=== PATIENT | female | born 1970 | race Caucasian/White ===

== ENCOUNTER 2017-01-26 21:34 | Inpatient (IN) | payer SELFPAY ==
[2017-01-26] VITALS (10 sets, daily range): BP systolic 106–159; BP diastolic 69–112; PULSE 88–114; RESP 8–14; TEMP 98.1; O2SAT 100
[2017-01-26] MEDS ORDERED: SODIUM CHLOR 0.9% 1000 ML INJ 1,000 ML IV ONE ×2 (21:42→22:00)
[2017-01-26] MEDS ORDERED: ETOMIDATE 20 MG/10 ML VIAL ONE (21:43)
[2017-01-26] MEDS ORDERED: SUCCINYLCHOLINE CHLORIDE 200 MG/10 ML VIAL ONE (21:44)
[2017-01-26] MEDS ORDERED: SUCCINYLCHOLINE CHLORIDE 200 MG/10 ML VIAL IV PUSH ONE (21:45)
[2017-01-26] MEDS ORDERED: SODIUM CHLORIDE 0.9% FLUSH 10 ML FLUSH IVF PRN (21:45)
[2017-01-26] MEDS ORDERED: ETOMIDATE 20 MG/10 ML VIAL IV PUSH ONE (21:45)
--- NOTE | 2017-01-26 22:02 | PD ---
HPI Chief Complaint: intentional overdose Time Seen by Provider: 21:36 Travel History International Travel<30 days: No (unable to obtain) Contact w/Intl Traveler<30days: No (unable to obtain) Traveled to known affect area: No (unable to obtain) History of Present Illness HPI The patient is a 46-year-old female who presents emergency department via EMS after an overdose. The patient apparently called her and stated that she was going to go and live with her stepmother who approximate 6 months ago. The called the police and when they arrived they obtained an entrance, EMS arrived and noted that the patient was found somewhat lethargic, obtunded, would arouse only to painful stimuli. EMS found an empty Flexeril bottle that was filled in November, had 180 tablets, 10 mg dose. The stated that there are quite a few pills left in the bottle, EMS is unsure of how many pills the patient took, however, apparently took the medications at approximately 9 PM. Upon arrival the patient responds minimally to painful stimuli and is unable to provide any further information. [facility] Past Medical History Medical History: Unable to Obtain Past Surgical History Surgical History: Unable to Obtain Family History Narrative Family History Unable to obtain Social History Tobacco Use: No (unable to obtain) Allergies-Medications (Allergen,Severity, Reaction): Coded Allergies: UNOBTAINABLE (Unverified , 01/26/17) AMS Review of Systems ROS Limitations: Clinical Condition, Altered Mental Status Except as stated in HPI: all other systems reviewed are Neg Physical Exam Exam Limitations: Clinical Condition, Altered Mental Status Narrative GENERAL: 46-year-old female who appears her stated age, minimally arouses to pain, and is nonverbal. SKIN: Focused skin assessment warm/dry. HEAD: Atraumatic. Normocephalic. EYES: Pupils equal and round. 2 mm bilateral and reactive. ENT: No nasal bleeding or discharge. Upper dentures in place. NECK: Trachea midline. No JVD. CARDIOVASCULAR: Regular rate and rhythm. No murmur appreciated. Heart rate in the 90s. RESPIRATORY: No accessory muscle use. Clear to auscultation. Breath sounds equal bilaterally. GASTROINTESTINAL: Abdomen soft, non-tender, nondistended. No rebound tenderness. MUSCULOSKELETAL: No obvious deformities. No clubbing. No cyanosis. No edema. Back: Tattoos noted, no evidence of trauma. NEUROLOGICAL: Responds minimally to painful stimuli. Nonverbal. PSYCHIATRIC: Unable to obtain. Data Data Last Documented VS Vital Signs Date Time Temp Pulse Resp B/P Pulse Ox O2 Delivery O2 Flow Rate FiO2 01/26/17 23:31 102 14 155/98 100 Ventilator 35 01/26/17 22:31 98.1 2 Orders Etomidate Inj (Amidate Inj) (01/26/17 21:43) Succinylcholine Inj (Quelicin Inj) (01/26/17 21:44) Electrocardiogram (01/26/17 21:42) Complete Blood Count With Diff (01/26/17 21:42) Comprehensive Metabolic Panel (01/26/17 21:42) Prothrombin Time / Inr (Pt) (01/26/17 21:42) Act Partial Throm Time (Ptt) (01/26/17 21:42) Osmolality,Serum (01/26/17 21:42) Urinalysis - C+S If Indicated (01/26/17 21:42) Chest, Single Ap (01/26/17 21:42) Ct Brain W/O Iv Contrast(Rout) (01/26/17 21:42) Arterial Blood Gas (Abg) (01/26/17 21:42) Iv Access Insert/Monitor (01/26/17 21:42) Ecg Monitoring (01/26/17 21:42) Oximetry (01/26/17 21:42) Jose-Gastric Tube Insert/Mon (01/26/17 21:42) Urinary Catheter Insert/Apply (01/26/17 21:42) Sodium Chloride 0.9% Flush (Ns Flush) (01/26/17 21:45) Sodium Chlor 0.9% 1000 Ml Inj (Ns 1000 M (01/26/17 21:42) Call Poison Control (01/26/17 21:42) Drug Screen, Random Urine (01/26/17 21:42) Alcohol (Ethanol) (01/26/17 21:42) Salicylates (Aspirin) (01/26/17 21:42) Tylenol (Acetaminophen) (01/26/17 21:42) Etomidate Inj (Amidate Inj) (01/26/17 21:45) Succinylcholine Inj (Quelicin Inj) (01/26/17 21:45) Ed Urine Pregnancytest Poc (01/26/17 21:42) Magnesium (Mg) (01/26/17 21:42) Propofol 1000 Mg/100 Ml Inj (Diprivan 10 (01/26/17 22:00) ^ Infusion (01/26/17 21:55) RASS (01/26/17 21:55) Neurological Rass Scale AUNDREA.Q2H (01/26/17 21:55) Sodium Chlor 0.9% 1000 Ml Inj (Ns 1000 M (01/26/17 22:00) Resp Ventilation- Volume (01/26/17 ) Admit Order (Ed Use Only) (01/27/17 00:00) Labs Laboratory Tests Test 01/26/17 22:20 Prothrombin Time 10.8 SEC Prothromb Time International 1.0 RATIO Ratio Activated Partial 23.3 SEC Thromboplast Time Urine Color YELLOW Urine Turbidity CLEAR Urine pH 6.0 Urine Specific [place]ole 1.007 Urine Protein NEG mg/dL Urine Glucose (UA) NEG mg/dL Urine Ketones NEG mg/dL Urine Occult Blood NEG Urine Nitrite NEG Urine Bilirubin NEG Urine Urobilinogen LESS THAN 2.0 MG/DL Urine Leukocyte Esterase NEG Urine RBC 1 /hpf Urine WBC 1 /hpf Urine Squamous Epithelial 1 /hpf Cells Microscopic Urinalysis Comment CULT NOT INDICATED Blood Gas Puncture Site RT FEMORAL Blood Gas Patient Temperature 98.6 Blood Gas HCO3 24 mmol/L Blood Gas Base Excess 1.1 mmol/L Blood Gas Oxygen Saturation 91 % Arterial Blood pH 7.50 Arterial Blood Partial 32 mmHg Pressure CO2 Arterial Blood Partial 263 mmHG Pressure O2 Arterial Blood Oxygen Content 15.5 Vol % Arterial Blood 8.1 % Carboxyhemoglobin Arterial Blood Methemoglobin 0.8 % Blood Gas Hemoglobin 11.6 G/DL Oxygen Delivery Device VENTILATOR Blood Gas Ventilator Setting AC14/500 5 PEEP Blood Gas Inspired Oxygen 50 % Sodium Level 141 MEQ/L Potassium Level 3.6 MEQ/L Chloride Level 105 MEQ/L Carbon Dioxide Level 26.9 MEQ/L Anion Gap 9 MEQ/L Blood Urea Nitrogen 8 MG/DL Creatinine 0.63 MG/DL Estimat Glomerular Filtration 102 ML/MIN Rate Random Glucose 68 MG/DL Calcium Level 7.9 MG/DL Magnesium Level 2.1 MG/DL Total Bilirubin 0.3 MG/DL Aspartate Amino Transf 46 U/L (AST/SGOT) Alanine Aminotransferase 31 U/L (ALT/SGPT) Alkaline Phosphatase 70 U/L Total Protein 6.5 GM/DL Albumin 2.8 GM/DL Salicylates Level 5.3 MG/DL Urine Opiates Screen NEG Acetaminophen Level LESS THAN 2.0 MCG/ML Urine Barbiturates Screen NEG Urine Amphetamines Screen POS Urine Benzodiazepines Screen NEG Urine Cocaine Screen NEG Urine Cannabinoids Screen POS Ethyl Alcohol Level 130 MG/DL MDM Medical Decision Making Medical Screen Exam Complete: Yes Emergency Medical Condition: Yes Medical Record Reviewed: Yes Interpretation(s) EKG reveals sinus tachycardia with a heart rate of 102. No significant ST-T wave changes noted. Differential Diagnosis Differential diagnosis includes intentional overdose, Flexeril ingestion, electrolyte abnormality, aspiration, intracranial hemorrhage, suicidal ideation. Narrative Course IV was established, labs are drawn and sent, and the patient was placed on cardiac telemetry monitoring and continuous pulse oximetry monitoring. The patient was minimally responsive to painful stimuli, was not protecting airway, had no gag reflex. Therefore, the patient was intubated using rapid sequence intubation with etomidate and succinylcholine. Poison control was contacted immediately. Orogastric tube and Mayfield catheter were placed. CT the brain was obtained and post intubation chest x-ray was obtained. The patient was administered IV fluids. Patient was placed on propofol drip for sedation. CT the brain is negative. Tox screen is positive for amphetamines and cannabinoids. Alcohol is elevated at 130. Salicylate level was 5.4. The patient's name on the record is not her identity, the police were notified. The patient will be admitted to the intensive care unit as she is sedated and intubated. Critical Care Narrative Aggregate critical care time was 45 minutes. Time to perform other separately billable procedures was not included in the critical care time. My time did not include minutes spent treating any other patients simultaneously or on activities that did not directly contribute to the patient's treatment. The services I provided to this patient were to treat and/or prevent clinically significant deterioration that could result in: Anoxia, hypoxia, aspiration, arrhythmia, . I provided critical care services requiring my management, as noted below: Chart data review, documentation time, medication orders and management, vital sign assessments/reviewing monitor data, ordering and reviewing lab tests, ordering and interpreting/reviewing x-rays and diagnostic studies, care of the patient and discussion of the patient with the admitting physicians. Procedures Procedure Narrative INTUBATION: The patient was put in optimal position for the procedure. Rapid sequence intubation was initiated by me using 20 milligrams of etomidate IV and 100 milligrams of succinylcholine IV. The patient was intubated with a 7.05cuffed endotracheal tube. Tube placement was confirmed by visualization of the tube and balloon passing through the cords, capnometry and subsequent chest x-ray. Breath sounds were equal and well aerated bilaterally postintubation. No breath sounds over stomach. Patient tolerated procedure well. Physician Communication Physician Communication The on-call trim carpenter was paged for admission. I discussed the patient with Dr. Stephens who agrees with admission. Diagnosis Primary Impression: Intentional overdose of drug in tablet form Additional Impressions: Alcohol intoxication Qualified Code: F10.920 - Alcohol intoxication, uncomplicated Polysubstance abuse Admitting Information Admitting Physician Requests: Admit Condition: Serious Roman Lemos MD January 26, 2017 22:02
--- NOTE | 2017-01-26 22:23 | RADRPT ---
EXAM DATE/TIME: 01/26/2017 22:03 [facility] COMPARISON: No previous studies available for comparison. INDICATIONS : Post procedure. MEDICAL HISTORY : None. SURGICAL HISTORY : None. ENCOUNTER: Initial ACUITY: 1 day PAIN SCORE: 0/10 LOCATION: Bilateral chest FINDINGS: An endotracheal tube has its tip 2 cm above the sedrick in good position. A nasogastric tube has its tip below the diaphragm. The heart and mediastinal structures are normal. The pulmonary vascular pa ttern is also normal. The lungs are clear. CONCLUSION: 1. No acute cardiopulmonary disease. 2. Endotracheal tube and nasogastric tube are in good positions. Toribio Hankins MD on January 26, 2017 at 22:17 Board Certified Radiologist. This report was verified electronically.
[2017-01-26 22:35] LABS: BLOOD GAS BASE EXCESS 1.1 mmol/L (-2-2); BLOOD GAS CARBOXYHEMOGLOBIN 8.1 % (0-4); BLOOD GAS HCO3 24 mmol/L (22-26); BLOOD GAS METHEMOGLOBIN 0.8 % (0-2); BLOOD GAS O2 HGB SATURATION 91 % (90-100); BLOOD GAS OXYGEN CONTENT 15.5 Vol % (12.0-20.0); BLOOD GAS PCO2 32 mmHg (38-42); BLOOD GAS PO2 263 mmHG (61-120); BLOOD GAS TOTAL HGB 11.6 G/DL (12.0-16.0); TEMP CORR TO 98.6
[2017-01-26 22:36] LABS: CRITICAL VALUE YES; DRAW SITE RT FEMORAL; FIO2 50 %; NUMBER OF ARTERIAL PUNCTURES 1; OXYGEN DEVICE VENTILATOR; STAT YES; VENT SETTINGS AC14/500 5 PEEP
[2017-01-26] MEDS: PROPOFOL 1000 MG/100 ML INJ 100 ML IV SCH ×2 (22:46→22:51)
[2017-01-26 22:56] LABS: BLOOD, URINE NEG (NEG); COMMENT (UR) CULT NOT INDICATED; CULTURE IF INDICATED CULT NOT INDICATED; GLUCOSE,URINE NEG (NEG); KETONE, URINE NEG (NEG); NITRITE,URINE NEG (NEG); SQUAMOUS EPITHELIAL CELL URINE 1 /hpf (0-5); URINE COLOR YELLOW (YELLW/STRAW)
[2017-01-26 23:00] LABS: AMPHETAMINE, URINE POS (NEG); BARBITURATES, URINE NEG (NEG); COCAINE, URINE NEG (NEG)
[2017-01-26 23:11] LABS: APTT (PATIENT) 23.3 SEC (24.3-30.1); PROTHROMBIN TIME - PATIENT 10.8 SEC (9.8-11.6)
[2017-01-26 23:19] LABS: ACETAMINOPHEN LESS THAN 2.0 MCG/ML (10.0-30.0); ALKALINE PHOSPHATASE 70 U/L (45-117); ALT (GPT) 31 U/L (10-53); ANION GAP 9 MEQ/L (5-15); AST (GOT) 46 U/L (15-37); BICARBONATE 26.9 MEQ/L (21.0-32.0); BLOOD UREA NITROGEN 8 MG/DL (7-18); CHLORIDE 105 MEQ/L (98-107); GLOMERULAR FILTRATION RATE 102 ML/MIN (>89); MAGNESIUM 2.1 MG/DL (1.5-2.5); POTASSIUM 3.6 MEQ/L (3.5-5.1); SODIUM (NA) 141 MEQ/L (136-145); TOTAL BILIRUBIN ADULT 0.3 MG/DL (0.2-1.0)
--- NOTE | 2017-01-26 23:59 | RADRPT ---
EXAM DATE/TIME: 01/26/2017 23:30 [facility] COMPARISON: No previous studies available for comparison. INDICATIONS : Altered mental status. Possible overdose. RADIATION DOSE: 56.35 CTDIvol (mGy) MEDICAL HISTORY : Non-responsive. SURGICAL HISTORY : Non-responsive. ENCOUNTER: Initial ACUITY: 1 day PAIN SCALE: Non-responsive LOCATION: cranial TECHNIQUE: Multiple contiguous axial images were obtained of the head. Using automated exposure control and adj ustment of the mA and/or kV according to patient size, radiation dose was kept as low as reasonably a chievable to obtain optimal diagnostic quality images. FINDINGS: CEREBRUM: The ventricles are normal for age. No evidence of midline shift, mass lesion, hemorrhage or acute in farction. No extra-axial fluid collections are seen. POSTERIOR FOSSA: The cerebellum and brainstem are intact. The 4th ventricle is midline. The cerebellopontine angle i s unremarkable. EXTRACRANIAL: The visualized portion of the orbits is intact. SKULL: The calvaria is intact. No evidence of skull fracture. CONCLUSION: Normal examination. Gerry Finley MD on January 26, 2017 at 23:57 Board Certified Radiologist. This report was verified electronically.
[2017-01-27] VITALS (25 sets, daily range): BP systolic 101–128; BP diastolic 64–96; PULSE 78–100; RESP 13–18; TEMP 96.6–99.9; O2SAT 100
--- NOTE | 2017-01-27 00:16 | HHI.HP ---
HPI Service Critical Care Medicine Primary Care Physician Unknown Admission Diagnosis intentional Flexeril overdose, alcohol intoxication, polysubstance a Diagnosis: Travel History International Travel<30 Days: No (unable to obtain) Contact w/Intl Traveler <30 Da: No (unable to obtain) Traveled to Known Affected Are: No (unable to obtain) History of Present Illness Patient is unable to provide medical history as she is intubated. History obtained largely from discussion with ED physician, Dr. Lemos. 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 46 her old female who presented to [facility] emergency department via E [facility] as an overdose with Flexeril. When [facility] arrived she was obtunded and would only arouse to noxious stimuli. There was an empty bottle of Flexeril 10 mg tabs which was filled in November with 180 mg tabs. Her stated that there were a lot of pills left in the bottle but the exact amount of her ingestion is unclear. It is estimated that she took the medications at around 9 PM on 01/26. Patient was intubated upon arrival to the emergency Department for airway protection. CT brain is negative. Urine drug screen is positive for amphetamines and cannabinoids. Alcohol level is 130. Past Family Social History Allergies: Coded Allergies: UNOBTAINABLE (Unverified , 01/26/17) AMS Past Medical History Unable to obtain from patient due to clinical condition. Past Surgical History Unable to obtain from patient due to clinical condition. Reported Medications Unable to obtain from patient due to clinical condition. Family History Unable to obtain from patient due to clinical condition. Social History Unable to him from patient due to clinical condition however she smells like cigarette smoke. EtOH level is 130. Physical Exam Vital Signs Vital Signs Date Time Temp Pulse Resp B/P Pulse Ox O2 Delivery O2 Flow Rate FiO2 01/27/17 00:00 100 14 119/82 100 Ventilator 35 01/26/17 23:40 100 01/26/17 23:31 102 14 155/98 100 Ventilator 35 01/26/17 22:53 88 14 106/69 Auto-Vent 01/26/17 22:42 103 14 137/92 Auto-Vent 01/26/17 22:35 100 35 01/26/17 22:31 Nasal Cannula 01/26/17 22:31 98.1 104 8 159/112 Nasal Cannula 2 01/26/17 22:08 114 14 132/97 Auto-Vent 01/26/17 21:55 100 50 01/26/17 21:35 104 8 159/112 Non-Rebreather Physical Exam Drips: Propofol 30 g per KG per minute. Placed on hold for evaluation. GENERAL: Thin well-developed female who is orotracheally intubated and sedated. SKIN: Warm and dry. HEAD: Atraumatic. Normocephalic. EYES: Pupils equal and round, 3 mm reactive bilaterally.. No scleral icterus. No injection or drainage. ENT: No nasal bleeding or discharge. Mucous membranes pink and moist. NECK: Trachea midline. No JVD. No meningismus CARDIOVASCULAR: Regular rate and rhythm. No murmurs rubs or gallops. RESPIRATORY: No accessory muscle use. Clear to auscultation. Breath sounds equal bilaterally. GASTROINTESTINAL: Abdomen soft, non-tender, nondistended. Bowel sounds present. : Mayfield in place with light yellow urine output. MUSCULOSKELETAL: Extremities without clubbing, cyanosis, or edema. No obvious deformities. NEUROLOGICAL: No eye opening to deep noxious stimuli. Localizes with bilateral upper extremities. Withdraws bilateral lowers. Does not follow commands. No clonus Laboratory Laboratory Tests Test 01/26/17 22:20 Prothrombin Time 10.8 Prothromb Time International 1.0 Ratio Activated Partial 23.3 Thromboplast Time Urine Color YELLOW Urine Turbidity CLEAR Urine pH 6.0 Urine Specific Joice 1.007 Urine Protein NEG Urine Glucose (UA) NEG Urine Ketones NEG Urine Occult Blood NEG Urine Nitrite NEG Urine Bilirubin NEG Urine Urobilinogen LESS THAN 2.0 Urine Leukocyte Esterase NEG Urine RBC 1 Urine WBC 1 Urine Squamous Epithelial 1 Cells Microscopic Urinalysis Comment CULT NOT INDICATED Blood Gas Puncture Site RT FEMORAL Blood Gas Patient Temperature 98.6 Blood Gas HCO3 24 Blood Gas Base Excess 1.1 Blood Gas Oxygen Saturation 91 Arterial Blood pH 7.50 Arterial Blood Partial 32 Pressure CO2 Arterial Blood Partial 263 Pressure O2 Arterial Blood Oxygen Content 15.5 Arterial Blood 8.1 Carboxyhemoglobin Arterial Blood Methemoglobin 0.8 Blood Gas Hemoglobin 11.6 Oxygen Delivery Device VENTILATOR Blood Gas Ventilator Setting AC14/500 5 PEEP Blood Gas Inspired Oxygen 50 Sodium Level 141 Potassium Level 3.6 Chloride Level 105 Carbon Dioxide Level 26.9 Anion Gap 9 Blood Urea Nitrogen 8 Creatinine 0.63 Estimat Glomerular Filtration 102 Rate Random Glucose 68 Calcium Level 7.9 Magnesium Level 2.1 Total Bilirubin 0.3 Aspartate Amino Transf 46 (AST/SGOT) Alanine Aminotransferase 31 (ALT/SGPT) Alkaline Phosphatase 70 Total Protein 6.5 Albumin 2.8 Salicylates Level 5.3 Urine Opiates Screen NEG Acetaminophen Level LESS THAN 2.0 Urine Barbiturates Screen NEG Urine Amphetamines Screen POS Urine Benzodiazepines Screen NEG Urine Cocaine Screen NEG Urine Cannabinoids Screen POS Ethyl Alcohol Level 130 Result Diagram: 01/26/170 Assessment and Plan Assessment and Plan NEURO: Polysubstance abuse - Amphetamine and cannabinoid abuse - Acute alcohol intoxication - Acute Flexeril overdose CT brain -01/26 Urine drug screen positive for amphetamines and cannabinoids Alcohol level 130 Acetaminophen and salicylate negative. Propofol for sedation. Target RASS -2. Daily sedation vacation. RESP: Acute respiratory failure tobacco abuse Intubated in ED for airway protection Chest x-raysatisfactory endotracheal tube position. Lungs clear DuoNeb every 6 hours. Albuterol every 2 hours as needed. Daily sedation vacation and SBT with extubation when mental status appropriate. CV: Monitor hemodynamic GI: Moderate chronic protein energy malnutrition OG tube to low intermittent wall suction. Initiate enteral feeds if unable to extubate in a.m. Bowel regimen per protocol FEN/RENAL: Mayfield in place. D5 0.4 NaCl 20 KCl per liter at 125 L per hour ID: Chest x-ray and UA negative. Monitor for signs and symptoms of infection HEME: Leukopenia Erythrocyte macrocytosis May be secondary to chronic alcohol use ENDO: Hypoglycemia Fluids with D5 as per above. Monitor bedside glucose every 4 hours. PROPH: SCDs/Lovenox 40 mg subcutaneous daily for DVT prophylaxis. Protonix 40 mg IV daily for stress ulcer prophylaxis. ACCESS: Peripheral IV providing adequate access at this time. Discussed with Dr. Lemos. Discussed with ED RN. Critical care time 55 minutes exclusive of separately billable procedures. Heidi Stephens MD January 27, 2017 00:16
[2017-01-27 00:23] LABS: AUTOMATED NEUTROPHIL # 1.8 TH/MM3 (1.8-7.7); BASOPHIL % 0.6 % (0.0-2.0); EOSINOPHIL # 0.1 TH/MM3 (0-0.4); EOSINOPHIL % 2.3 % (0.0-4.0); HEMATOCRIT 34.7 % (35.0-46.0); HEMO FLAGS DIFF FINAL; LYMPH % 35.3 % (9.0-44.0); LYMPHOCYTE # 1.2 TH/MM3 (1.0-4.8); MEAN CELL VOLUME 113.1 FL (80.0-100.0); MEAN CORPUSCULAR HEMOGLOBIN 37.8 PG (27.0-34.0); MEAN CORPUSCULAR HGB CONC 33.4 % (32.0-36.0); MONO % 8.6 % (0.0-8.0); NEUT % 53.2 % (16.0-70.0); PLATELET COUNT 169 TH/MM3 (150-450); RED BLOOD COUNT 3.07 MIL/MM3 (4.00-5.30); RED CELL DISTRIBUTION WIDTH 16.1 % (11.6-17.2); WHITE BLOOD COUNT 3.4 TH/MM3 (4.0-11.0)
[2017-01-27] MEDS ORDERED: CHLORHEXIDINE GLUCONATE 2 % 1 PACK (2 CLOTHS) TOP PRN (00:30)
[2017-01-27] MEDS ORDERED: SODIUM CHLORIDE 0.9% FLUSH 10 ML FLUSH PRN (00:30)
[2017-01-27] MEDS ORDERED: LACTULOSE SYRUP 20 GM/30 ML CUP PO PRN (00:30)
[2017-01-27] MEDS ORDERED: PROPOFOL 1000 MG/100 ML INJ 100 ML IV SCH (00:30)
[2017-01-27] MEDS ORDERED: MISCELLANEOUS NURSING INFORMATION XX SCH (00:30)
[2017-01-27] MEDS ORDERED: ONDANSETRON HCL 4 MG/2 ML VIAL IV PRN (00:30)
[2017-01-27] MEDS ORDERED: RESP: ALBUTEROL 2.5 MG/3 ML NEB (PRN) INH (00:30)
[2017-01-27] MEDS ORDERED: MAGNESIUM HYDROXIDE SUSP 30 ML CUP PO PRN (00:30)
[2017-01-27] MEDS ORDERED: ACETAMINOPHEN 325 MG TAB PO PRN (00:30)
[2017-01-27] MEDS ORDERED: BISACODYL 10 MG SUPP RECTAL PRN (00:30)
[2017-01-27] MEDS ORDERED: SENNOSIDES 8.6 MG TAB PO PRN (00:30)
[2017-01-27] MEDS: D5-1/2 NS + KCL 20 MEQ INJ 1,000 ML IV SCH ×3 (01:03→18:40)
[2017-01-27 01:46] LABS: BLOOD GAS BASE EXCESS -1.2 mmol/L (-2-2); BLOOD GAS CARBOXYHEMOGLOBIN 3.6 % (0-4); BLOOD GAS HCO3 23 mmol/L (22-26); BLOOD GAS METHEMOGLOBIN 0.5 % (0-2); BLOOD GAS O2 HGB SATURATION 96 % (90-100); BLOOD GAS OXYGEN CONTENT 15.1 Vol % (12.0-20.0); BLOOD GAS PCO2 36 mmHg (38-42); BLOOD GAS PO2 173 mmHG (61-120); CRITICAL VALUE NO; OXYGEN DEVICE VENTILATOR; TEMP CORR TO 98.6
[2017-01-27 01:47] LABS: DRAW SITE RT FEMORAL; FIO2 35 %; NUMBER OF ARTERIAL PUNCTURES 1; VENT SETTINGS PRVC/AC
[2017-01-27 01:48] LABS: STAT NO
[2017-01-27] MEDS: RESP: ALBUTEROL 2.5 MG/IPRATROPIUM 0.5 MG NEB (SCH) INH ×4 (03:24→22:55)
[2017-01-27] MEDS: CHLORHEXIDINE GLUCONATE 2 % 1 PACK (2 CLOTHS) TOP SCH (03:42)
[2017-01-27] MEDS: ENOXAPARIN SODIUM 40 MG/0.4 ML SYRINGE SQ SCH (06:46)
[2017-01-27] MEDS: CHLORHEXIDINE 0.12% (ORAL KIT) 15 ML CUP MT SCH ×2 (08:00→20:00)
--- NOTE | 2017-01-27 08:21 | EKG ---
Date Performed: 01/26/2017 Time Performed: 22:13:37 PTAGE: 46 years EKG: SINUS TACHYCARDIA ABNORMAL RHYTHM ECG NO PREVIOUS TRACING DOCTOR: Rommel Chavez Interpretating Date/Time 01/27/2017 08:20:29
[2017-01-27] MEDS: DOCUSATE SODIUM 50 MG/SENNA 8.6 MG TAB PO SCH ×2 (09:00→20:17)
[2017-01-27] MEDS: PANTOPRAZOLE SODIUM 40 MG VIAL IV SCH (09:03)
[2017-01-27] MEDS: SODIUM CHLORIDE 0.9% FLUSH 10 ML FLUSH SCH ×2 (09:03→20:14)
[2017-01-27] MEDS: PROPOFOL 1000 MG/100 ML INJ 100 ML IV SCH (11:26)
[2017-01-28] VITALS (16 sets, daily range): BP systolic 110–140; BP diastolic 67–99; PULSE 84–103; RESP 19–26; TEMP 97.7–99; O2SAT 97–100
[2017-01-28] MEDS: CHLORHEXIDINE GLUCONATE 2 % 1 PACK (2 CLOTHS) TOP SCH
[2017-01-28] MEDS: D5-1/2 NS + KCL 20 MEQ INJ 1,000 ML IV SCH ×3 (01:58→20:06)
[2017-01-28] MEDS: RESP: ALBUTEROL 2.5 MG/IPRATROPIUM 0.5 MG NEB (SCH) INH ×4 (04:13→22:00)
[2017-01-28 04:38] LABS: AUTOMATED NEUTROPHIL # 6.2 TH/MM3 (1.8-7.7); BASOPHIL % 0.6 % (0.0-2.0); EOSINOPHIL % 0.5 % (0.0-4.0); HEMATOCRIT 34.6 % (35.0-46.0); HEMO FLAGS DIFF FINAL; LYMPH % 12.6 % (9.0-44.0); MEAN CELL VOLUME 114.2 FL (80.0-100.0); MEAN CORPUSCULAR HGB CONC 33.3 % (32.0-36.0); MONO % 5.9 % (0.0-8.0); NEUT % 80.4 % (16.0-70.0); PLATELET COUNT 142 TH/MM3 (150-450); RED BLOOD COUNT 3.03 MIL/MM3 (4.00-5.30); RED CELL DISTRIBUTION WIDTH 16.3 % (11.6-17.2); WHITE BLOOD COUNT 7.8 TH/MM3 (4.0-11.0)
[2017-01-28 04:47] LABS: BICARBONATE 25.5 MEQ/L (21.0-32.0); POTASSIUM 3.7 MEQ/L (3.5-5.1)
[2017-01-28] MEDS: PROPOFOL 1000 MG/100 ML INJ 100 ML IV SCH (05:26)
[2017-01-28] MEDS: ENOXAPARIN SODIUM 40 MG/0.4 ML SYRINGE SQ SCH (05:26)
--- NOTE | 2017-01-28 06:47 | HHI.CCPN ---
Subjective Remarks/Hospital Course Patient is unable to provide medical history as she is intubated. History obtained largely from discussion with ED physician, Dr. Lemos. 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 46 her old female who presented to [facility] emergency department via E [facility] as an overdose with Flexeril. When E VAC arrived she was obtunded and would only arouse to noxious stimuli. There was an empty bottle of Flexeril 10 mg tabs which was filled in November with 180 mg tabs. Her stated that there were a lot of pills left in the bottle but the exact amount of her ingestion is unclear. It is estimated that she took the medications at around 9 PM on 01/26. Patient was intubated upon arrival to the emergency Department for airway protection. CT brain is negative. Urine drug screen is positive for amphetamines and cannabinoids. Alcohol level is 130. 0530: Very agitated this morning. Will attempt to extubate bur may require a sedation protocol. Suicide precautions. Objective Vital Signs Date Time Temp Pulse Resp B/P Pulse Ox O2 Delivery O2 Flow Rate FiO2 01/28/17 06:34 100 Nasal Cannula 4 01/28/17 06:00 103 01/28/17 04:13 35 01/28/17 04:00 97.7 26 140/74 Intake and Output 01/27/17 01/27/17 01/28/17 08:00 16:00 00:00 Intake Total 2581 ml 1208 ml 856 ml Output Total 100 ml 450 ml 400 ml Balance 2481 ml 758 ml 456 ml Result Diagram: 01/28/17 0335 01/28/17 0335 Objective Remarks Drips: d/c Propofol 30 g per KG per minute. Placed on hold for evaluation. GENERAL: Thin female who is orotracheally intubated and sedated. SKIN: Warm and dry. HEAD: Atraumatic. Normocephalic. EYES: Pupils equal and round, 2 mm reactive bilaterally. NECK: Trachea midline. No meningismus CARDIOVASCULAR: Regular rate and rhythm. No murmurs rubs or gallops. No JVD. RESPIRATORY: Clear to auscultation. Breath sounds equal bilaterally. GASTROINTESTINAL: Abdomen soft, non-tender, nondistended. Bowel sounds present. MUSCULOSKELETAL: Extremities without clubbing, cyanosis, or edema. No obvious deformities. Well perfused. NEUROLOGICAL:Moves 4 limbs with 5/5 strength. Does not follow commands. A/P Assessment and Plan NEURO: Polysubstance abuse - Amphetamine and cannabinoid abuse - Acute alcohol intoxication - Acute Flexeril overdose CT brain -01/26 Urine drug screen positive for amphetamines and cannabinoids Alcohol level 130 Acetaminophen and salicylate negative. Propofol for sedation. Target RASS 0 Daily sedation vacation. RESP: Acute respiratory failure tobacco abuse Intubated in ED for airway protection Chest x-raysatisfactory endotracheal tube position. Lungs clear DuoNeb every 6 hours. Albuterol every 2 hours as needed. Daily sedation vacation and SBT with extubation when mental status appropriate. Extubate today CV: Monitor hemodynamic GI: Moderate chronic protein energy malnutrition OG tube to low intermittent wall suction. Initiate enteral feeds if unable to extubate in a.m. Bowel regimen per protocol FEN/RENAL: Mayfield in place. D5 0.4 NaCl 20 KCl per liter at 125 L per hour ID: Chest x-ray and UA negative. Monitor for signs and symptoms of infection HEME: Leukopenia Erythrocyte macrocytosis May be secondary to chronic alcohol use ENDO: Hypoglycemia Fluids with D5 as per above. Monitor bedside glucose every 4 hours. PROPH: SCDs/Lovenox 40 mg subcutaneous daily for DVT prophylaxis. Protonix 40 mg IV daily for stress ulcer prophylaxis. ACCESS: Peripheral IV providing adequate access at this time. Will need psych eval. Bruno Lovett MD January 28, 2017 06:47
[2017-01-28] MEDS: CHLORHEXIDINE 0.12% (ORAL KIT) 15 ML CUP MT SCH ×2 (07:57→20:00)
[2017-01-28] MEDS: PANTOPRAZOLE SODIUM 40 MG VIAL IV SCH (09:07)
[2017-01-28] MEDS: SODIUM CHLORIDE 0.9% FLUSH 10 ML FLUSH SCH ×2 (09:07→20:06)
[2017-01-28] MEDS: DOCUSATE SODIUM 50 MG/SENNA 8.6 MG TAB PO SCH ×2 (09:07→20:06)
[2017-01-29] VITALS (7 sets, daily range): BP systolic 112–124; BP diastolic 70–85; PULSE 77–84; RESP 14–20; TEMP 98.7–99; O2SAT 97–100
[2017-01-29] MEDS: D5-1/2 NS + KCL 20 MEQ INJ 1,000 ML IV SCH (03:27)
[2017-01-29] MEDS: CHLORHEXIDINE GLUCONATE 2 % 1 PACK (2 CLOTHS) TOP SCH (03:27)
[2017-01-29] MEDS: RESP: ALBUTEROL 2.5 MG/IPRATROPIUM 0.5 MG NEB (SCH) INH ×2 (04:00→08:49)
[2017-01-29] MEDS: ENOXAPARIN SODIUM 40 MG/0.4 ML SYRINGE SQ SCH (06:15)
[2017-01-29] MEDS: SODIUM CHLORIDE 0.9% FLUSH 10 ML FLUSH SCH (09:00)
--- NOTE | 2017-01-29 09:19 | PD.CONS ---
Provisional Diagnosis Admission Date January 27, 2017 at 00:01 [place] I. Major depressive disorder, recurrent, severe without psychosis [place] II. Deferred [place] III. No significant medical his [place] IV. Previous suicidal attempt, conflicts with significant other [place] V. 45 History of Present Illness Service Psychiatry Consult Requested By Primary Care Physician Unknown HPI The patient is 46-year-old woman, recently moved to [place] from [facility] with her , at this moment unemployed, with psychiatric history of depression, 1 previous hospitalizations, 1 previous suicide attempt by overdosing about a year ago, no significant medical history, who presented to [facility] emergency department via E VAC as an overdose with Flexeril. When E VAC arrived she was obtunded and would only arouse to noxious stimuli. There was an empty bottle of Flexeril 10 mg tabs which was filled in November with 180 mg tabs. Her stated that there were a lot of pills left in the bottle but the exact amount of her ingestion is unclear. Patient was intubated upon arrival to the emergency Department for airway protection. CT brain is negative. Urine drug screen is positive for amphetamines and cannabinoids. Alcohol level is 130. Consulted to psychiatry to assess potential overdose with suicidal intention. On psychiatric evaluation this morning patient is found sleeping, very difficult to arouse, is still very obtunded and lethargic, but able to provide some useful information from psychiatric assessment. Patient seems to be resistant and oppositional to talk about her recent suicidal attempt, she does say that she overdosed with the intention to and she clarifies that she doesn't feel happy of being a life. Patient says "I am focusing sock and tired of this Bullshit", but does not elaborate about the reason of her anger and the cause of her overdose. She says that she has been having conflict with her . She admits that she has been "getting drunk every night, with everything I find". But she fails in quantifying and qualifying her alcohol intake. She also reports the use of marijuana everyday. Her Raffi Escobedo, says that the patient has already tried to commit suicide by overdose about a year ago. He says that the patient has been depressed, very irritable every day pessimistic about her future, increasing her alcohol intake day by day, with a very poor self esteem, he says that patient finds herself all the, old and fat and she seems to be very distressed about this. Everyday which she drinks she said that she is going to drink"to get drunk, if not drinking doesn't make any sense". He is almost sure that she overdosed with the intention to . Review of Systems Constitutional: DENIES: Diaphoretic episodes, Fatigue, Fever, Weight gain, Weight loss, Chills, Dizziness, Change in appetite, Night Sweats Endocrine: DENIES: Abnorml menstrual pattern, Heat/cold intolerance, Polydipsia , Polyuria, Polyphagia Eyes: DENIES: Blurred vision, Diplopia, Eye inflammation, Eye pain, Vision loss , Photosensitivity, Double Vision Ears, nose, mouth, throat: DENIES: Tinnitus, Hearing loss, Vertigo, Nasal discharge, Oral lesions, Throat pain, Hoarseness, Ear Pain, Running Nose, Epistaxis, Sinus Pain, Toothache, Odynophagia Respiratory: DENIES: Apneas, Cough, Snoring, Wheezing, Hemoptysis, Sputum production, Shortness of breath Gastrointestinal: DENIES: Abdominal pain, Black stools, Bloody stools, Constipation, Diarrhea, Nausea, Vomiting, Difficulty Swallowing, Anorexia Genitourinary: DENIES: Abnormal vaginal bleeding, Dysmenorrhea, Dyspareunia, Sexual dysfunction, Urinary frequency, Urinary incontinence, Urgency, Hematuria , Dysuria, Nocturia, Vaginal discharge Integumentary: DENIES: Abnormal pigmentation, Pruritus, Rash, Nail changes, Breast masses, Breast skin changes, Nipple discharge Hematologic/lymphatic: DENIES: Bruising, Lymphadenopathy Immunologic/allergic: DENIES: Eczema, Urticaria Neurologic: DENIES: Abnormal gait, Headache, Localized weakness, Paresthesias, Seizures, Speech Problems, Tremor, Poor Balance Psychiatric: COMPLAINS OF: Depression, Suicidal Ideation, DENIES: Anxiety, Confusion, Mood changes, Hallucinations, Agitation, Homicidal Ideation, Delusions Past Family Social History Coded Allergies: Amoxicillin (Verified Allergy, Unknown, 01/28/17) Unable to Obtain Active Prescriptions or Reported Meds Current Medications Medications (Trade) Dose Ordered Sig/Saida Route Start Time Stop Time Status Last Admin Sodium Chloride 2 ml 2 ml UNSCH PRN IVF 01/26/17 21:45 (Diprivan 1000 Mg/100ml Inj) 100 ml @ 0 mls/hr TITRATE IV 01/26/17 22:00 01/28/17 05:26 Chlorhexidine Gluconate 15 ml 15 ml BID@08,20 MT 01/27/17 08:00 01/28/17 20:00 (D5-1/2 NS + KCl 20 Meq Inj) 1,000 ml @ 125 mls/hr Q8H IV 01/27/17 00:29 01/29/17 03:27 (NS Flush) 2 ml UNSCH PRN .XX 01/27/17 00:30 (NS Flush) 2 ml BID .XX 01/27/17 09:00 01/28/17 20:06 (Tylenol) 650 mg Q6H PRN PO 01/27/17 00:30 (Protonix Inj) 40 mg DAILY IV 01/27/17 09:00 01/28/17 09:07 (Zofran Inj) 4 mg Q6H PRN IV 01/27/17 00:30 (Lovenox Inj) 40 mg Q24H SQ 01/27/17 06:00 01/29/17 06:15 Miscellaneous Information 1 Q361D XX 01/27/17 00:30 01/27/17 03:41 (Chlorhexidine 2% Cloth) 3 pack Taper DAILY@04 TOP 01/27/17 04:00 01/23/18 03:59 01/29/17 03:27 (Chlorhexidine 2% Cloth) 3 pack UNSCH PRN TOP 01/27/17 00:30 (Gail-Colace) 1 tab BID PO 01/27/17 09:00 01/28/17 09:07 (Milk Of Magnesia Liq) 30 ml Q12H PRN PO 01/27/17 00:30 (Senokot) 17.2 mg Q12H PRN PO 01/27/17 00:30 (Dulcolax Supp) 10 mg DAILY PRN RECTAL 01/27/17 00:30 Lactulose 30 ml 30 ml DAILY PRN PO 01/27/17 00:30 (Diprivan 1000 Mg/100ml Inj) 100 ml @ 0 mls/hr TITRATE IV 01/27/17 00:30 Family History No family psychiatric history Social History Patient was born and raised in [place], she recently moved to [facility] in [place], she lives with her , she has 2 kids, 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 Patient's Strengths (min. 2) Family support Physical Exam Vital Signs Vital Signs Date Time Temp Pulse Resp B/P Pulse Ox O2 Delivery O2 Flow Rate FiO2 01/29/17 06:00 80 01/29/17 04:00 98.8 20 115/78 97 01/28/17 08:40 Nasal Cannula 2.00 01/28/17 04:13 35 I/O 01/28/17 01/28/17 01/29/17 08:00 16:00 00:00 Intake Total 1021 ml 1156 ml 1081 ml Output Total 750 ml 1700 ml 900 ml Balance 271 ml -544 ml 181 ml Lab Results Mental Status Examination Appearance woman, age appearing, good hygiene, [facility], still sedated, poorly cooperative Speech: Hesitant, Slow Orientation: x3 Memory: Unremarkable Thought Process: Goal Directed, Linear Thought Content: Unremarkable Hallucination Type: None Attention and Concentration: Abnormal Suicidal Ideation: Yes Previous Suicide Attempts: Yes Insight: Poor Affect: Irritable Mood: Angry Motor Activity: Normal gait Assessment & Plan Problem List: (1) Major depressive disorder, recurrent Assessment & Plan: On psychiatric evaluation patient is just superficially cooperative, she is is still sedated, but also oppositional and resistant with the evaluation. He does report that she overdosed with the intention to , and she is tired of her life. She says that she regrets that her suicidal attempt failed. As per patient has been showing symptomatology of depression at least for the last month, with increased alcohol intake, decreased functionality, very low self esteem, low sensitivity to frustration and rejection. says the patient has already tried to commit suicide about a year ago with a very similar presentation that this moment. Patient is currently in acute danger to herself and needs psychiatric hospitalization for stabilization and safety. She needs to continue in one-to-one sitter in the floor. No psychotropics indicated at this moment. [facility] protocol. Patient can be transferred to psychiatry once medically appropriate. Brief supportive psychotherapy provided. Consult appreciated. ICD Code: F33.9 Assessment & Plan Estimated LOS: days Problem Qualifiers (1) Major depressive disorder, recurrent: Marcial Hernandez MD January 29, 2017 09:18
[2017-01-29] MEDS: PANTOPRAZOLE SODIUM 40 MG VIAL IV SCH (09:37)
[2017-01-29] MEDS: DOCUSATE SODIUM 50 MG/SENNA 8.6 MG TAB PO SCH (09:37)
--- NOTE | 2017-01-29 10:55 | HHI.PR ---
Subjective Remarks pateint very tearful- states caught her "doing things" denies any suicidal ideations aright now Objective Vitals Vital Signs Date Time Temp Pulse Resp B/P Pulse Ox O2 Delivery O2 Flow Rate FiO2 01/29/17 08:00 98.7 84 16 112/70 99 01/29/17 06:00 80 01/29/17 04:00 98.8 78 20 115/78 97 01/29/17 04:00 78 01/29/17 02:00 84 01/29/17 00:00 83 01/29/17 00:00 99.0 83 14 114/73 98 01/28/17 22:00 92 01/28/17 20:00 99.0 92 21 129/98 97 01/28/17 20:00 85 01/28/17 18:00 85 01/28/17 16:00 97.8 86 20 119/80 98 01/28/17 16:00 86 01/28/17 14:00 87 01/28/17 12:00 85 01/28/17 12:00 98.6 86 24 112/82 99 I/O 01/28/17 01/28/17 01/28/17 01/29/17 01/29/17 01/29/17 07:00 15:00 23:00 07:00 15:00 23:00 Intake Total 1021 ml 1156 ml 1081 ml 891 ml Output Total 750 ml 1700 ml 900 ml Balance 271 ml -544 ml 181 ml 891 ml Intake Oral 50 ml 240 ml 50 ml IV Total 1021 ml 1106 ml 841 ml 841 ml Output Urine Total 700 ml 1700 ml 900 ml Gastric Drainage Total 50 ml # Voids 4 # Bowel Movements 0 0 1 0 Result Diagram: 01/28/17 0335 01/28/17 033 Imaging Last Impressions Head CT 01/26/172141 Signed Impressions: Service Date/Time: Thursday, January 26, 2017 23:30 - CONCLUSION: Normal examination. Gerry Finley MD Chest X-Ray 01/26/172141 Signed Impressions: Service Date/Time: Thursday, January 26, 2017 22:03 - CONCLUSION: 1. No acute cardiopulmonary disease. 2. Endotracheal tube and nasogastric tube are in good positions. Toribio Hankins MD Objective Remarks awake and alert, NAD, but very tearful anicteric lungs decreased breath sounds regular rhythm abdomen soft, nontender extremities no edema neuro exam unremarkable A/P Assessment and Plan 46 years old female Polysubstance abuse- counselled extensively - Amphetamine and cannabinoid abuse - Acute alcohol intoxication - Acute Flexeril overdose CT brain -01/26 Urine drug screen positive for amphetamines and cannabinoids Alcohol level 130 Acute respiratory failure- resolved S/P extubation tobacco abuse. History of HAD on MDIs - start MDIs Moderate chronic protein energy malnutrition encourage po intake- Leukopenia Erythrocyte macrocytosis May be secondary to chronic alcohol use discharge to psyhciatry unit today Accepted by Dr. Hernandez [facility] will continue to ff her there if reconsulted Enedelia Jeronimo MD January 29, 2017 10:55
[2017-01-29] MEDS ORDERED: VENTAER INH (11:13)
[2017-01-29] MEDS ORDERED: IPRASOL INH (11:13)
--- NOTE | 2017-01-29 11:14 | HHI.DS ---
Discharge Summary Admission Date January 27, 2017 at 00:01 Discharge Date: January 29, 2017 Admitting Diagnosis intentional Flexeril overdose, alcohol intoxication, polysubstance a (1) Polysubstance abuse ICD Code: F19.10 Diagnosis: [place] (2) Major depressive disorder, recurrent ICD Code: F33.9 Diagnosis: [place] Procedures endotracheal intubation Brief History - From Admission Patient is unable to provide medical history as she is intubated. History obtained largely from discussion with ED physician, Dr. Lemos. 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 46 her old female who presented to [facility] emergency department via E VAC as an overdose with Flexeril. When E VAC arrived she was obtunded and would only arouse to noxious stimuli. There was an empty bottle of Flexeril 10 mg tabs which was filled in November with 180 mg tabs. Her stated that there were a lot of pills left in the bottle but the exact amount of her ingestion is unclear. It is estimated that she took the medications at around 9 PM on 01/26. Patient was intubated upon arrival to the emergency Department for airway protection. CT brain is negative. Urine drug screen is positive for amphetamines and cannabinoids. Alcohol level is 130. CBC/BMP: 01/28/17 0335 01/28/17 0335 Significant Findings Laboratory Tests Test 01/26/17 01/27/17 01/27/17 01/28/17 22:20 00:00 01:40 03:35 Activated Partial 23.3 SEC Thromboplast Time (24.3-30.1) Arterial Blood pH 7.50 (7.380-7.420) Arterial Blood Partial 32 mmHg (38-42) 36 mmHg (38-42) Pressure CO2 Arterial Blood Partial 263 mmHG 173 mmHG Pressure O2 (61-120) (61-120) Arterial Blood 8.1 % (0-4) Carboxyhemoglobin Blood Gas Hemoglobin 11.6 G/DL 11.0 G/DL (12.0-16.0) (12.0-16.0) Random Glucose 68 MG/DL 111 MG/DL (74-106) (74-106) Calcium Level 7.9 MG/DL 7.5 MG/DL (8.5-10.1) (8.5-10.1) Aspartate Amino Transf 46 U/L (15-37) (AST/SGOT) Albumin 2.8 GM/DL (3.4-5.0) Acetaminophen Level LESS THAN 2.0 MCG/ML (10.0-30.0) Urine Amphetamines Screen POS (NEG) Urine Cannabinoids Screen POS (NEG) Ethyl Alcohol Level 130 MG/DL (0-5) Serum Osmolality 322 MOSM/KG (275-295) White Blood Count 3.4 TH/MM3 (4.0-11.0) Red Blood Count 3.07 MIL/MM3 3.03 MIL/MM3 (4.00-5.30) (4.00-5.30) Hematocrit 34.7 % 34.6 % (35.0-46.0) (35.0-46.0) Mean Corpuscular Volume 113.1 FL 114.2 FL (80.0-100.0) (80.0-100.0) Mean Corpuscular Hemoglobin 37.8 PG 38.0 PG (27.0-34.0) (27.0-34.0) Monocytes (%) (Auto) 8.6 % (0.0-8.0) Hemoglobin 11.5 GM/DL (11.6-15.3) Platelet Count 142 TH/MM3 (150-450) Neutrophils (%) (Auto) 80.4 % (16.0-70.0) Chloride Level 109 MEQ/L (98-107) Blood Urea Nitrogen 5 MG/DL (7-18) Imaging Last Impressions Head CT 01/26/172141 Signed Impressions: Service Date/Time: Thursday, January 26, 2017 23:30 - CONCLUSION: Normal examination. Gerry Finley MD Chest X-Ray 01/26/172141 Signed Impressions: Service Date/Time: Thursday, January 26, 2017 22:03 - CONCLUSION: 1. No acute cardiopulmonary disease. 2. Endotracheal tube and nasogastric tube are in good positions. Toribio Hankins MD PE at Discharge awake and alert, NAD, but very tearful anicteric lungs decreased breath sounds regular rhythm abdomen soft, nontender extremities no edema neuro exam unremarkable Transfer Summary Flexeril OD requiring intubation. Suicidal ideation. Extubated. Pt update on day of discharge awake and alert, good sats at room air no wheezing or rales, good airway exchange still tearful Hospital Course 46 years old female Polysubstance abuse- counselled extensively - Amphetamine and cannabinoid abuse - Acute alcohol intoxication - Acute Flexeril overdose CT brain -01/26 Urine drug screen positive for amphetamines and cannabinoids Alcohol level 130 Acute respiratory failure- resolved S/P extubation tobacco abuse. History of HAD on MDIs - start MDIs Moderate chronic protein energy malnutrition encourage po intake- Leukopenia Erythrocyte macrocytosis May be secondary to chronic alcohol use discharge to psyhciatry unit today Accepted by Dr. Hernandez [facility] will continue to ff her there for medical ff up Pt Condition on Discharge: Stable Discharge Disposition: Disc to Psych Care Fac Discharge Time: <= 30 minutes Discharge Instructions DIET: Follow Instructions for: As Tolerated, No Restrictions Speech Therapy-Diet Recommends: Regular, Other Activities you can perform: Weight Bearing as [place] New Medications: Albuterol 18 GM Inh (Ventolin Hfa 18 GM Inh) 90 Mcg/Act Aer 2 PUFF INH Q6HR HAD Days 30 INHALER Ipratropium-Albuterol Neb (Duoneb) 0.5-2.5 Mg/3 Ml Neb 1 AMPULE INH Q4HR SOB/WHEEZ Days 7 ML Enedelia Jeronimo MD January 29, 2017 11:14
[2017-01-29] MEDS ORDERED: ALBUTEROL SULFATE 90 MCG/ACT HFA 18 GM INHALER INH SCH (12:00)
== END 2017-01-29 14:08 | DRG 917 ==
LOC: NEPC 21:34 → NEDA 01-27 00:01 → N03B 01-27 03:10
PROVIDERS: ADMIT Internal Medicine; ATTEND Internal Medicine
PROC: 0BH17EZ Insertion of Endotracheal Airway into Trachea, Via Natural or Artificial Opening (ICD-10-PCS; principal; 2017-01-27)
PROC: 5A1935Z Respiratory Ventilation, Less than 24 Consecutive Hours (ICD-10-PCS; 2017-01-27)
DX: T48.1X2A Poisoning by skeletal muscle relaxants [neuromuscular blocking agents], intentional self-harm, initial encounter (principal); G92 Toxic encephalopathy; J96.01 Acute respiratory failure with hypoxia; E44.0 Moderate protein-calorie malnutrition; F33.2 Major depressive disorder, recurrent severe without psychotic features; Y92.009 Unspecified place in unspecified non-institutional (private) residence as the place of occurrence of the external cause; F10.129 Alcohol abuse with intoxication, unspecified; Y90.6 Blood alcohol level of 120-199 mg/100 ml; F15.10 Other stimulant abuse, uncomplicated; F12.10 Cannabis abuse, uncomplicated; F17.210 Nicotine dependence, cigarettes, uncomplicated; E16.2 Hypoglycemia, unspecified
CPT/HCPCS: 31500; 36600; 51702; 70450; 71010; 80048; 80053; 80307; 81001; 82805; 82948; 83735; 83930; 84703; 85025; 85610; 85730; 87641; 93005; 94002; 94003; 94640; 94664; 96365; 96375; C9113; J0330; J1650; J3480; J7030

== ENCOUNTER 2017-01-29 14:18 | Inpatient (IN) | payer SELFPAY ==
[~2017-01-29] VITALS: Ht 157.5 cm; Wt 48.3 kg
[~2017-01-29 14:18] MED LIST: IPRASOL INH; VENTAER INH
[2017-01-29 15:00] VITALS: BP 131/83; PULSE 99; RESP 17; TEMP 97.9
[2017-01-29] MEDS ORDERED: LORazepam 1 MG TAB PO PRN ×2 (15:00)
[2017-01-29] MEDS ORDERED: MAGNESIUM HYDROXIDE SUSP 30 ML CUP PO PRN (15:00)
[2017-01-29] MEDS ORDERED: LORazepam 2 MG/ML VIAL IM PRN ×2 (15:00)
[2017-01-29] MEDS ORDERED: LORazepam 2 MG TAB PO PRN (15:00)
[2017-01-29] MEDS ORDERED: ACETAMINOPHEN 325 MG TAB PO PRN (15:00)
[2017-01-29] MEDS ORDERED: LORazepam 2 MG/ML VIAL IV PUSH PRN ×4 (15:00)
[2017-01-29] MEDS ORDERED: ALUMINUM/MAGNESIUM/SIMETH 30 ML CUP PO PRN (15:00)
[2017-01-29] MEDS ORDERED: LORazepam 0.5 MG TAB PO PRN (15:00)
[2017-01-29] MEDS ORDERED: FLUMAZENIL 0.5 MG/5 ML VIAL IV PUSH PRN (15:00)
[2017-01-29] MEDS: NICOTINE 21 MG/24 HR PATCH T-DERMAL SCH (16:40)
[2017-01-29] MEDS: REMOVE OLD PATCH T-DERMAL SCH (16:40)
[2017-01-30 05:29] VITALS: BP 121/72; PULSE 88; RESP 16; TEMP 97.1; O2SAT 98
[2017-01-30] MEDS: NICOTINE 21 MG/24 HR PATCH T-DERMAL SCH (08:45)
[2017-01-30] MEDS: REMOVE OLD PATCH T-DERMAL SCH (08:45)
--- NOTE | 2017-01-30 11:50 | HHI.HP ---
Provisional Diagnosis Admission Date January 29, 2017 at 14:18 [place] I. 1. Adjustment disorder with disturbance of emotions and conduct Rule out component of obsessive-compulsive disorder 2. Polysubstance abuse including alcohol, stimulants and cannabis [place] II. Deferred [place] V. GAF is 35 presently Certification of Person's Competence To Provide Express and Informed Consent I have personally examined Enma Paula , a person being served at [facility] on, Jan 30, 2017 11:34. Express and informed consent means consent voluntarily given in writing, by a competent person, after sufficient explanation and disclosure of the subject matter involved to enable the person to make a knowing and willful decision without any element of force, fraud, deceit, duress, or other form of constraint or coercion. This person is 18 years of age or older, is not now known to be incompetent to consent to treatment with a guardian advocate, and does not have a health care surrogate or proxy currently making medical treatment decisions. I have found this person to be one of the following: [] Competent to provide express and informed consent, as defined above, for voluntary admission to this facility and is competent to provide express and informed consent for treatment. He/she has the consistent capacity to make well reasoned, willful, and knowing decisions concerning his or her medical or mental health treatment. The person fully and consistently understands the purpose of the admission for examination/placement and is fully capable of personally exercising all rights assured [place] [] Incompetent to provide express and informed consent to voluntary admission, and this is incompetent to provide express and informed consent to treatment. The person must be transferred to involuntary status and a petition for a guardian advocate filed with the Circuit Court. [x] Refusing to provide express and informed consent to voluntary admission but is competent to provide express and informed consent for treatment. The person must be discharged or transferred to involuntary status. Form shall be completed within 24 hours of a person's arrival at the receiving facility and filed in the clinical record of each person: 1. Admitted on a voluntary basis 2. Permitted to provide express and informed consent to his/her own treatment 3. Allowed to transfer from involuntary to voluntary status 4. Prior to permitting a person to consent to his or her own treatment after having been previously found incompetent to consent to treatment. History of Present Illness Capacity: Has Capacity (to consent for meds) HPI Ms. Paula is a 46-year-old female with a reported history of attention deficit who presented initially following a Flexeril overdose on over 100 tablets. She is a Lau act. She was initially medically admitted for management of her overdose and was seen in consultation by Dr. Hernandez, and I have reviewed this documentation. Reviewing the electronic medical record, patient has no prior visits to [place]. Patient seen and examined with counselor, Letty. Chart reviewed. Case discussed with nursing staff. On my examination today, the patient presents as extremely irritable. She blames all of her misfortune on her . She accuses him of being a bigamist and mismanaging money and other affairs. She notes that he has a brain tumor. She says that she made the overdose because "he started the same old shit, denying and denying and denying. He has financially fucked me. We build a brand-new house and he's gone stupid." She notes that they argued and after her "I chugged a bunch of pills and said 'F you world.'" Patient is ambivalent about surviving her overdose but denies any active suicidal ideation. However, she cannot currently generate any reasons to live. No homicidal ideation. Patient denies depressive or hypomanic/manic symptoms and says that she would be fine were not for the frustration caused by her . She denies any audiovisual hallucinations and I can elicit no delusional beliefs. She does note that she takes stimulants for "ADHD" although she does not describe any symptoms consistent with attention deficit. Rather she says that she "paces around a lot, and I have to take a certain number of steps. The labels on the cans have to face a certain way." No other obsessive or compulsive behaviors described. The remainder of the psychiatric ROS is negative. Past psychiatric history: The patient denies a history of psychiatric diagnoses formally. She did see a psychiatrist once in the past after she tried to slit her wrists 10 or 12 years ago again related to some sort of conflict with her , although she denies a history of psychiatric admissions. She says that the stimulants that she takes are obtained by her in his name from his doctor at the [place]. She denies any other history of self-harm. Review of Systems ROS Limitations: Poor Historian Except as stated in HPI: all other systems reviewed are Neg Past Psych History Psychological trauma history Denies any trauma history to me. Violence risk - others (6 mos) Indeterminate. Patient is quite angry with her but does not describe HI. Violence risk - self (6 mos) Elevated. Recent serious overdose, and the patient is ambivalent about surviving this. She denies active SI but cannot generate a reason to live. Substance Abuse History Drugs/Alcohol past 12 months Patient is abusing stimulants as noted above. She is particularly defensive regarding questions about her substance use. She insists that she has seriously curtailed her alcohol intake although she does admit to a history of recent blackouts. She denies any history of DTs or seizures. She estimates her longest sober time on the order of years. She smokes cannabis daily and says "I'm never going to give up my pot." Past Family Social History Coded Allergies: Amoxicillin (Verified Allergy, Unknown, 01/28/17) Past Medical History See EMR. Active Scripts Ipratropium-Albuterol Neb (Duoneb)0.5-2.5 Mg/3 Ml Neb1 Ampule INH Q4HR 7 Days Prov:Enedelia Jeronimo MD 01/29/17 Albuterol 18 GM Inh (Ventolin Hfa 18 GM Inh)90 Mcg/Act Aer2 Puff INH Q6HR 30 Days Prov:Enedelia Jeornimo MD 01/29/17 Current Medications Medications (Trade) Dose Ordered Sig/Saida Route Start Time Stop Time Status Last Admin (Ativan) 1 mg Q6H PRN PO 01/29/17 15:00 (Ativan Inj) 1 mg Q6H PRN IM 01/29/17 15:00 (Tylenol) 650 mg Q4H PRN PO 01/29/17 15:00 (Milk Of Magnesia Liq) 30 ml DAILY PRN PO 01/29/17 15:00 (Mag-Al Plus Susp Liq) 30 ml Q6H PRN PO 01/29/17 15:00 (Habitrol 21 Mg Patch.24 Hr) 1 patch DAILY T-DERMAL 01/29/17 17:00 01/30/17 08:45 (Romazicon Inj) 0.2 mg Q1M PRN IV PUSH 01/29/17 15:00 (Ativan) 1 mg Q4H PRN PO 01/29/17 15:00 (Ativan Inj) 1 mg Q4H PRN IV PUSH 01/29/17 15:00 (Ativan) 2 mg Q2H PRN PO 01/29/17 15:00 (Ativan Inj) 2 mg Q2H PRN IV PUSH 01/29/17 15:00 (Ativan Inj) 2 mg Q1H PRN IV PUSH 01/29/17 15:00 (Ativan Inj) 2 mg Q15M PRN IV PUSH 01/29/17 15:00 Miscellaneous Information 1 DAILY T-DERMAL 01/29/17 17:00 01/30/17 08:45 Family History Patient denies a family history of serious mental illness or suicide. She notes that her maternal grandfather was an alcoholic. Social History Patient reports that she has been for 20 years. This is her second marriage. She alleges that her is a bigamist. She initially says that she has no children but later tells the counselor that she has 2 children from her previous relationship. She also accuses her of having children out of wedlock. 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 She has a master's degree. She has not worked in 3 years since her was diagnosed with brain tumor. She denies any or legal history. Denies any access to guns or firearms. No yarsanism or spiritual beliefs. Patient's Strengths (min. 2) In a monitored setting. Verbally fluent. Physical Exam Physical examination was completed by the hospitalist on the medical floor. On my examination today, the patient appears to be no acute physical distress. No motor abnormalities noted. No signs of GABAergic or other withdrawal noted. Laboratories and vital signs reviewed: Vital Signs Vital Signs Date Time Temp Pulse Resp B/P Pulse Ox O2 Delivery O2 Flow Rate FiO2 01/30/17 05:29 97.1 88 16 121/72 98 Lab Results Item Value Date Time White Blood Count 7.8 TH/MM3 01/28/17 0335 Hemoglobin 11.5 GM/DL L 01/28/17 0335 Platelet Count 142 TH/MM3 L 01/28/17 0335 Sodium Level 141 MEQ/L 01/28/17 0335 Potassium Level 3.7 MEQ/L 01/28/17 0335 Chloride Level 109 MEQ/L H 01/28/17 0335 Carbon Dioxide Level 25.5 MEQ/L 01/28/17 0335 Blood Urea Nitrogen 5 MG/DL L 01/28/17 0335 Creatinine 0.58 MG/DL 01/28/17 0335 Aspartate Amino Transf (AST/SGOT) 46 U/L H 01/26/17 2220 Alanine Aminotransferase (ALT/SGPT) 31 U/L 01/26/17 222 Alkaline Phosphatase 70 U/L 01/26/17 222 Urine Amphetamines Screen POS H 01/26/17 2220 Urine Cannabinoids Screen POS H 01/26/17 222 Ethyl Alcohol Level 130 MG/DL H 01/26/172219 Head CT was read as normal. Mental Status Examination Patient is in hospital gown. She is somewhat disheveled but appears to be maintaining basic hygiene. She is awake and alert and oriented to person and hospital at least. No abnormal motor movements noted. Speech is somewhat terse and angry. Language and fund of knowledge along with memory seemed generally intact on clinical exam. Mood is irritable and affect is restricted and dysphoric. Thought process perseverative on her frustrations with her . No loosening of associations. No valeria delusional material. Denies audiovisual hallucinations. Denies active suicidal or homicidal ideation. Insight and judgment seem poor. Previous Suicide Attempts: Yes Assessment & Plan Problem List: (1) Adjustment disorder ICD Code: F43.20 (2) Polysubstance abuse ICD Code: F19.10 Assessment & Plan This is a 46-year-old female with psychiatric history as detailed above who presents in transfer from the medical floor under a Lau act following a Flexeril overdose. On my examination today, the patient presents as intensely irritable and says her is the cause of all of her problems. There does seem to be a component of obsessionality at play, and the patient also doubtless has substance use issues and has been misusing stimulants prescribed to her along with cannabis and alcohol by her report. Several ongoing risk factors for self-harm. Patient requires psychiatric hospitalization at this time for safety, observation and stabilization. Admit inpatient. Patient is refusing to consent for voluntary psychiatric admission. Involuntary status. I've completed first opinion and will consult for second opinion. Patient retains capacity to consent for medications. I will start Lexapro at a dose of 10 mg daily for patient's dysphoria and obsessional symptoms. Atarax as needed for anxiety. CIWA with Ativan as needed for any withdrawal symptoms. Thiamine and folate. Seizure and fall precautions. Consult with the dietitian as the patient reportedly has a history of gastric sleeve. I will also consult the hospitalist to continue to follow from the medical floor. Vitals every shift. Counselor to see and obtain collateral. Disposition planning. Estimated length of stay: 5-7 days. Discharge Planning Pending psychiatric observation Request HC Surrog/Guard Advoc?: No Problem Qualifiers (1) Adjustment disorder: Qualified Code: F43.25 - Adjustment disorder with mixed disturbance of emotions and conduct Misael Christianson MD Jan 30, 2017 11:49
--- NOTE | 2017-01-30 14:14 | PD.CONS ---
Provisional Diagnosis Admission Date January 29, 2017 at 14:18 [place] I. 1. Adjustment disorder with disturbance of emotions and conduct Rule out component of obsessive-compulsive disorder 2. Polysubstance abuse including alcohol, stimulants and cannabis [place] II. Deferred [place] V. GAF is 35 presently History of Present Illness Service Psychiatry Consult Requested By Dr. christianson Reason for Consult Second opinion [facility] Primary Care Physician Unknown HPI Ms. Paula is a 46-year-old female with a reported history of attention deficit who presented initially following a Flexeril overdose on over 100 tablets. She is a [place],. She was initially medically admitted for management of her overdose and was seen in consultation by Dr. Hernandez, and I have reviewed this documentation. Reviewing the electronic medical record, patient has no prior visits to [place]. Patient seen and examined with counselor, Letty. Chart reviewed. Case discussed with nursing staff. On my examination today, the patient presents as extremely irritable. She blames all of her misfortune on her . She accuses him of being a bigamist and mismanaging money and other affairs. She notes that he has a brain tumor. She says that she made the overdose because "he started the same old shit, denying and denying and denying. He has financially fucked me. We build a brand-new house and he's gone stupid." She notes that they argued and after her "I chugged a bunch of pills and said 'F you world.'" Patient is ambivalent about surviving her overdose but denies any active suicidal ideation. However, she cannot currently generate any reasons to live. No homicidal ideation. Patient denies depressive or hypomanic/manic symptoms and says that she would be fine were not for the frustration caused by her . She denies any audiovisual hallucinations and I can elicit no delusional beliefs. She does note that she takes stimulants for "ADHD" although she does not describe any symptoms consistent with attention deficit. Rather she says that she "paces around a lot, and I have to take a certain number of steps. The labels on the cans have to face a certain way." No other obsessive or compulsive behaviors described. The remainder of the psychiatric ROS is negative. Past psychiatric history: The patient denies a history of psychiatric diagnoses formally. She did see a psychiatrist once in the past after she tried to slit her wrists 10 or 12 years ago again related to some sort of conflict with her , although she denies a history of psychiatric admissions. She says that the stimulants that she takes are obtained by her in his name from his doctor at the [place]. She denies any other history of self-harm. 01/30/17 Above note dictated by Dr. Christianson noted and agreed with. Patient seen in her room with floor staff patient angry irritable demanding markedly distracted and I located him a conversation with me storming out of the room into the day room. Sammy has signed first opinion petition supporting Lau act. I agree. Patient meets criteria for involuntary psychiatric hospitalization under the Lau act. Thus I will cosign second opinion petition supporting Lau act Past Family Social History Coded Allergies: Amoxicillin (Verified Allergy, Unknown, 01/28/17) Active Scripts Ipratropium-Albuterol Neb (Duoneb)0.5-2.5 Mg/3 Ml Neb1 Ampule INH Q4HR 7 Days Prov:Enedelia Jeronimo MD 01/29/17 Albuterol 18 GM Inh (Ventolin Hfa 18 GM Inh)90 Mcg/Act Aer2 Puff INH Q6HR 30 Days Prov:Enedelia Jeronimo MD 01/29/17 Current Medications Medications (Trade) Dose Ordered Sig/Saida Route Start Time Stop Time Status Last Admin (Tylenol) 650 mg Q4H PRN PO 01/29/17 15:00 (Milk Of Magnesia Liq) 30 ml DAILY PRN PO 01/29/17 15:00 (Mag-Al Plus Susp Liq) 30 ml Q6H PRN PO 01/29/17 15:00 (Habitrol 21 Mg Patch.24 Hr) 1 patch DAILY T-DERMAL 01/29/17 17:00 01/30/17 08:45 (Romazicon Inj) 0.2 mg Q1M PRN IV PUSH 01/29/17 15:00 (Ativan) 1 mg Q4H PRN PO 01/29/17 15:00 (Ativan Inj) 1 mg Q4H PRN IV PUSH 01/29/17 15:00 (Ativan) 2 mg Q2H PRN PO 01/29/17 15:00 (Ativan Inj) 2 mg Q2H PRN IV PUSH 01/29/17 15:00 (Ativan Inj) 2 mg Q1H PRN IV PUSH 01/29/17 15:00 (Ativan Inj) 2 mg Q15M PRN IV PUSH 01/29/17 15:00 Miscellaneous Information 1 DAILY T-DERMAL 01/29/17 17:00 01/30/17 08:45 (Atarax) 50 mg Q6H PRN PO 01/30/17 11:45 (Lexapro) 10 mg DAILY PO 01/31/17 09:00 (Vitamin B1) 100 mg DAILY PO 01/31/17 09:00 (Folate) 1 mg DAILY PO 01/31/17 09:00 Patient's Strengths (min. 2) In a monitored setting. Verbally fluent. Physical Exam Vital Signs Vital Signs Date Time Temp Pulse Resp B/P Pulse Ox O2 Delivery O2 Flow Rate FiO2 01/30/17 05:29 97.1 88 16 121/72 98 Mental Status Examination Alert disorganized confused disheveled thin white female with multiple tattoos with very poor eye contact Appearance Markedly disheveled Speech: Pressured, Rapid, Incoherent Orientation: Person Memory: Impaired (describe) Thought Process: Loose Association Thought Content: Paranoid Language Poor Fund of Knowledge Poor Hallucination Type: None (denies that appears to be responding to internal stimuli) Attention and Concentration: Easily Distracted Suicidal Ideation: Yes (recent suicide attempt) Previous Suicide Attempts: Yes Homicidal Ideation: No Previous Homicide Attempts: No Insight: Poor Judgment: Poor Affect: Other (increased range and intensity) Mood: Angry, Oppositional, Irritable, Manic Motor Activity: Normal gait Assessment & Plan Problem List: (1) Adjustment disorder ICD Code: F43.20 (2) Polysubstance abuse ICD Code: F19.10 Assessment & Plan Estimated LOS: days Request HC Surrog/Guard Advoc?: No Problem Qualifiers (1) Adjustment disorder: Qualified Code: F43.25 - Adjustment disorder with mixed disturbance of emotions and conduct Gerry Marks MD Jan 30, 2017 14:14
[2017-01-30 16:00] VITALS: BP 104/69; PULSE 103; RESP 17; TEMP 98.1; O2SAT 97
[2017-01-30] MEDS: hydrOXYzine HCL 50 MG TAB PO PRN (21:22)
[2017-01-31 05:50] VITALS: BP 112/68; PULSE 83; RESP 16; TEMP 97.8; O2SAT 100
[2017-01-31] MEDS: ESCITALOPRAM OXALATE 10 MG TAB PO SCH (09:00)
[2017-01-31] MEDS: REMOVE OLD PATCH T-DERMAL SCH (09:00)
[2017-01-31] MEDS: FOLIC ACID 1 MG TAB PO SCH (09:00)
[2017-01-31] MEDS: NICOTINE 21 MG/24 HR PATCH T-DERMAL SCH (09:00)
[2017-01-31] MEDS: THIAMINE HCL 100 MG TAB PO SCH (09:00)
[2017-01-31 10:16] LABS: AUTOMATED NEUTROPHIL # 2.9 TH/MM3 (1.8-7.7); BASOPHIL % 0.8 % (0.0-2.0); EOSINOPHIL # 0.1 TH/MM3 (0-0.4); HEMATOCRIT 36.2 % (35.0-46.0); HEMO FLAGS DIFF FINAL; LYMPH % 24.1 % (9.0-44.0); LYMPHOCYTE # 1.1 TH/MM3 (1.0-4.8); MEAN CELL VOLUME 112.5 FL (80.0-100.0); MEAN CORPUSCULAR HEMOGLOBIN 37.6 PG (27.0-34.0); MEAN CORPUSCULAR HGB CONC 33.4 % (32.0-36.0); MONO % 11.1 % (0.0-8.0); PLATELET COUNT 232 TH/MM3 (150-450); RED BLOOD COUNT 3.22 MIL/MM3 (4.00-5.30); WHITE BLOOD COUNT 4.7 TH/MM3 (4.0-11.0)
[2017-01-31] MEDS: busPIRone HCL 10 MG TAB PO SCH ×2 (13:00→17:42)
[2017-01-31] MEDS: hydrOXYzine HCL 50 MG TAB PO PRN (13:00)
--- NOTE | 2017-01-31 13:01 | HHI.PYPN ---
Subjective Remarks Patient seen and examined with counselor and nurse. Chart reviewed. Case discussed with nursing staff who reports that the patient is depressed and tearful and complaining of poor sleep. She reports to nursing that she has taken Elavil for this in the past. On my examination today, the patient initially seems a little less dysphoric, although there is a superficial quality to her interaction and she seems to be trying to minimize her psychiatric symptomatology. Speech is somewhat pressured. She denies any suicidal ideation. She does note that she has trouble with sleep and says that Elavil was helpful but she also says that her first major overdose was on over 100 tablets of Elavil. Points of ongoing anxiety, says that BuSpar was helpful for this. Fairly discharge focused. When she learns that she will not be leaving today she becomes quite agitated, slamming the door and throwing paper work. No side effects from medications. No physical complaints. Review of Systems Except as stated in HPI: all other systems reviewed are Neg Objective Alert: Yes [place]: Person (O x 3) Mood: Depressed (?improving) Affect: Other (Less dysphoric) Memory Intact: Comment (Intact on clinical exam) Hallucinations: Other (No AVH) Delusions: No Delusion Type: Other (No delusions) Suicidal: Ideation (Denies SI) Homicidal: Ideation (No HI) Insight/Judgment Poor Remarks No motor abnormality noted. No signs of withdrawal noted. Thought process linear. Speech somewhat pressured. Grooming and hygiene seem improved today versus yesterday. Labs Test 01/31/17 09:07 White Blood Count 4.7 TH/MM3 Red Blood Count 3.22 MIL/MM3 Hemoglobin 12.1 GM/DL Hematocrit 36.2 % Mean Corpuscular Volume 112.5 FL Mean Corpuscular Hemoglobin 37.6 PG Mean Corpuscular Hemoglobin 33.4 % Concent Red Cell Distribution Width 15.0 % Platelet Count 232 TH/MM3 Mean Platelet Volume 8.0 FL Neutrophils (%) (Auto) 62.0 % Lymphocytes (%) (Auto) 24.1 % Monocytes (%) (Auto) 11.1 % Eosinophils (%) (Auto) 2.0 % Basophils (%) (Auto) 0.8 % Neutrophils # (Auto) 2.9 TH/MM3 Lymphocytes # (Auto) 1.1 TH/MM3 Monocytes # (Auto) 0.5 TH/MM3 Eosinophils # (Auto) 0.1 TH/MM3 Basophils # (Auto) 0.0 TH/MM3 CBC Comment DIFF FINAL Differential Comment Thyroid Stimulating Hormone 2.840 uIU/ML 3rd Gen Labs reviewed. TSH within normal limits. Anemia improved. Vitals/IOs Vital Signs Date Time Temp Pulse Resp B/P Pulse Ox O2 Delivery O2 Flow Rate FiO2 01/31/17 05:50 97.8 83 16 112/68 100 Assessment & Plan Problem List: (1) Adjustment disorder ICD Code: F43.20 (2) Polysubstance abuse ICD Code: F19.10 Assessment & Plan Add BuSpar 10 mg 3 times daily for anxiety. Continue Lexapro as ordered for dysphoria and obsessional thinking; could consider titrating this agent over the weekend. Hospitalist financial operations consultant input noted and appreciated. Continue to monitor on the inpatient unit. Continue other medications and care as ordered. Justification for Cont. Inpt. Monitoring for impairments in safety. Medication changes and process. High risk for decompensation in a less restrictive environment. Discharge Planning Pending outcome of observation. Possible discharge beginning of next week. Request HC Surrog/Guard Advoc?: No Problem Qualifiers (1) Adjustment disorder: Qualified Code: F43.25 - Adjustment disorder with mixed disturbance of emotions and conduct Misael Christianson MD Jan 31, 2017 13:00
--- NOTE | 2017-01-31 13:02 | PD.CONS ---
HPI Service [facility] Hospitalists Consult Requested By Psychiatry Reason for Consult Medical management Primary Care Physician Unknown Diagnoses: History of Present Illness Ms. Paula is a 46-year-old female who was admitted to the hospital after overdose on Flexeril and was intubated for airway protection. She was extubated on 01/28/2017. Patient was subsequently admitted to the psychiatry floor. Hospitalist service is consulted for overall medical management. Patient currently denies any chest pain, shortness of breath, fever , chills. Denies any changes in her bowel or bladder habits. Denies any suicidal or homicidal ideations. Review of Systems Except as stated in HPI: all other systems reviewed are Neg Past Family Social History Allergies: Coded Allergies: Amoxicillin (Verified Allergy, Unknown, 01/28/17) Past Medical History Flexeril overdose Acute respiratory failure Tobacco abuse Past Surgical History Bariatric surgery, right leg surgery, neck surgery. Reported Medications Current Medications Lorazepam (Ativan) 1 mg Q6H PRN PO MODERATE TO SEVERE ANXIETY; Start 01/29/17 at 15:00; Stop 01/30/17 at 11:34; Status DC Lorazepam (Ativan Inj) 1 mg Q6H PRN IM MODERATE TO SEVERE ANXIETY; Start at 15:00; Stop 01/30/17 at 11:34; Status DC Lorazepam (Ativan) 0.5 mg Q12H PRN PO MODERATE TO SEVERE ANXIETY; Start at 15:00; Stop 01/29/17 at 15:49; Status DC Lorazepam (Ativan Inj) 0.5 mg Q12H PRN IM MODERATE TO SEVERE ANXIETY; Start at 15:00; Stop 01/29/17 at 15:49; Status DC Acetaminophen (Tylenol) 650 mg Q4H PRN PO Pain 1-5 or Temp >101F; Start at 15:00 Magnesium Hydroxide (Milk Of Magnesia Liq) 30 ml DAILY PRN PO CONSTIPATION; Start 01/29/17 at 15:00 Al Hydrox/Mg Hydrox/Simethicone (Mag-Al Plus Susp Liq) 30 ml Q6H PRN PO DYSPEPSIA; Start 01/29/17 at 15:00 Nicotine (Habitrol 21 Mg Patch.24 Hr) 1 patch DAILY T-DERMAL Last administered on 01/31/17 09:00; Start 01/29/17 at 17:00 Flumazenil (Romazicon Inj) 0.2 mg Q1M PRN IV PUSH SEE LABEL COMMENTS; Start at 15:00 Lorazepam (Ativan) 1 mg Q4H PRN PO CIWA 8 - 10; Start 01/29/17 at 15:00 Lorazepam (Ativan Inj) 1 mg Q4H PRN IV PUSH CIWA 8 - 10; Start 01/29/17 at 15: 00 Lorazepam (Ativan) 2 mg Q2H PRN PO CIWA 11-14; Start 01/29/17 at 15:00 Lorazepam (Ativan Inj) 2 mg Q2H PRN IV PUSH CIWA 11-14; Start 01/29/17 at 15:00 Lorazepam (Ativan Inj) 2 mg Q1H PRN IV PUSH CIWA 15-20; Start 01/29/17 at 15:00 Lorazepam (Ativan Inj) 2 mg Q15M PRN IV PUSH CIWA > 20; Start 01/29/17 at 15:00 Miscellaneous Information 1 DAILY T-DERMAL Last administered on 01/31/17 09:00 ; Start 01/29/17 at 17:00 Hydroxyzine HCl (Atarax) 50 mg Q6H PRN PO ANXIETY Last administered on 21:22; Start 01/30/17 at 11:45 Escitalopram Oxalate (Lexapro) 10 mg DAILY PO Last administered on 01/31/17 09: 00; Start 01/31/17 at 09:00 Thiamine HCl (Vitamin B1) 100 mg DAILY PO Last administered on 01/31/17 09:00; Start 01/31/17 at 09:00 Folic Acid (Folate) 1 mg DAILY PO Last administered on 01/31/17 09:00; Start at 09:00 Buspirone HCl (Buspar) 10 mg TID PO ; Start 01/31/17 at 13:00 Family History Parents had heart disease, obesity. Social History Reports smoking 1 ppd, drinking about one beer a day. Denies using illicit drugs. Physical Exam Vital Signs Vital Signs Date Time Temp Pulse Resp B/P Pulse Ox O2 Delivery O2 Flow Rate FiO2 01/31/17 05:50 97.8 83 16 112/68 100 01/30/17 16:00 98.1 103 17 104/69 97 Physical Exam GENERAL: This is a well-nourished, well-developed patient, in no apparent distress. SKIN: No rashes, ecchymoses or lesions. Warm and dry. HEAD: Atraumatic. Normocephalic. No temporal or scalp tenderness. EYES: Pupils equal round and reactive. No injection or drainage. ENT: Nose without bleeding, purulent drainage or septal hematoma. Airway patent. NECK: Trachea midline. No lymphadenopathy. Supple, nontender, no meningeal signs. CARDIOVASCULAR: Regular rate and rhythm without murmurs, gallops, or rubs. No JVD. RESPIRATORY: Clear to auscultation. Breath sounds equal bilaterally. No wheezes , rales, or rhonchi. GASTROINTESTINAL: Abdomen soft, non-tender, nondistended. No guarding. MUSCULOSKELETAL: Extremities without clubbing, cyanosis, or edema. NEUROLOGICAL: Awake and alert. Cranial nerves II through XII intact. No focal neurological deficits. Normal speech. Laboratory Laboratory Tests Test 01/31/17 09:07 White Blood Count 4.7 Red Blood Count 3.22 Hemoglobin 12.1 Hematocrit 36.2 Mean Corpuscular Volume 112.5 Mean Corpuscular Hemoglobin 37.6 Mean Corpuscular Hemoglobin 33.4 Concent Red Cell Distribution Width 15.0 Platelet Count 232 Mean Platelet Volume 8.0 Neutrophils (%) (Auto) 62.0 Lymphocytes (%) (Auto) 24.1 Monocytes (%) (Auto) 11.1 Eosinophils (%) (Auto) 2.0 Basophils (%) (Auto) 0.8 Neutrophils # (Auto) 2.9 Lymphocytes # (Auto) 1.1 Monocytes # (Auto) 0.5 Eosinophils # (Auto) 0.1 Basophils # (Auto) 0.0 CBC Comment DIFF FINAL Differential Comment Thyroid Stimulating Hormone 2.840 3rd Gen Result Diagram: 01/31/17 0907 Assessment and Plan Problem List: (1) Major depressive disorder, recurrent ICD Code: F33.9 Status: Acute (2) Alcohol intoxication ICD Code: F10.929 Status: Acute (3) Intentional overdose of drug in tablet form ICD Code: T50.902A Status: Acute Assessment and Plan Ms. Paula is a 46 year old female who was recently admitted to ICU after an overdose on Flexeril requiring intubation due to acute respiratory failure. Patient was extubated on 01/28/2017. Patient was subsequently admitted to the psychiatry floor. Hospitalist service was consulted for medical management/ evaluation. - Intentional overdose on Flexeril - Acute respiratory failure - resolved. - Patient is currently hemodynamically stable - Major depressive disorder - Management per psychiatry. - Alcohol abuse - continue CIWA protocol. Continue Folic acid and Thiamine for at least one month. - Mild anemia with MCV 112.5 likely due to alcohol. Full code. Ambulation. Thank you for the consult. Patient is currently medical stable. We will sign off. Please contact us if we can be of any help while patient is in the hospital. Maxi Cisse DO Jan 31, 2017 1:02 pm
[2017-01-31] MEDS ORDERED: diphenhydrAMINE HCL 50 MG CAP PO PRN (17:15)
[2017-01-31 17:20] VITALS: BP 107/67; PULSE 95; RESP 18; TEMP 98.3; O2SAT 96
[2017-02-01 06:22] VITALS: BP 119/71; PULSE 80; RESP 16; TEMP 97.2; O2SAT 96
[2017-02-01] MEDS: THIAMINE HCL 100 MG TAB PO SCH (08:54)
[2017-02-01] MEDS: ESCITALOPRAM OXALATE 10 MG TAB PO SCH (08:55)
[2017-02-01] MEDS: FOLIC ACID 1 MG TAB PO SCH (08:55)
[2017-02-01] MEDS: busPIRone HCL 10 MG TAB PO SCH ×3 (08:55→18:00)
[2017-02-01] MEDS: NICOTINE 21 MG/24 HR PATCH T-DERMAL SCH (08:58)
[2017-02-01] MEDS: REMOVE OLD PATCH T-DERMAL SCH (08:58)
--- NOTE | 2017-02-01 16:20 | HHI.PYPN ---
Subjective Remarks Pt seen and discussed with staff. She reports that mood remains depressed. She denies SI/HI. She denies medication side effects. She visited with today and states that visit was difficult. She has julian isolative to her room. Objective Alert: Yes [place]: Person (O x 3) Mood: Depressed (?improving) Affect: Restricted Memory Intact: Comment (intact) Hallucinations: Other (No AVH) Delusions: No Delusion Type: Other (No delusions) Suicidal: Ideation (Denies SI) Homicidal: Ideation (No HI) Insight/Judgment poor Vitals/IOs Vital Signs Date Time Temp Pulse Resp B/P Pulse Ox O2 Delivery O2 Flow Rate FiO2 02/01/17 06:22 97.2 80 16 119/71 96 Assessment & Plan Problem List: (1) Adjustment disorder ICD Code: F43.20 (2) Polysubstance abuse ICD Code: F19.10 Assessment & Plan Continue current tx plan. Estimated LOS: days Justification for Cont. Inpt. monitoring for safety Request HC Surrog/Guard Advoc?: No Problem Qualifiers (1) Adjustment disorder: Qualified Code: F43.25 - Adjustment disorder with mixed disturbance of emotions and conduct Tory Spring MD Feb 01, 2017 4:20 pm
[2017-02-01 18:38] VITALS: BP 99/69; PULSE 92; RESP 16; TEMP 97.8; O2SAT 97
[2017-02-02 06:30] VITALS: BP 113/71; PULSE 90; RESP 18; TEMP 98.6; O2SAT 98
[2017-02-02] MEDS: FOLIC ACID 1 MG TAB PO SCH (08:52)
[2017-02-02] MEDS: THIAMINE HCL 100 MG TAB PO SCH (08:52)
[2017-02-02] MEDS: busPIRone HCL 10 MG TAB PO SCH ×3 (08:52→18:14)
[2017-02-02] MEDS: ESCITALOPRAM OXALATE 10 MG TAB PO SCH (08:52)
[2017-02-02] MEDS: REMOVE OLD PATCH T-DERMAL SCH (08:55)
[2017-02-02] MEDS: NICOTINE 21 MG/24 HR PATCH T-DERMAL SCH (08:55)
[2017-02-02 18:28] VITALS: BP 99/59; PULSE 58; RESP 18; TEMP 98.6; O2SAT 98
--- NOTE | 2017-02-02 18:28 | HHI.PYPN ---
Subjective Remarks Pt seen and discussed with staff. She remains depressed but reports anxiety is better. She denies SI/HI today. Visited with family. Pt states that she regrets suicide attempt. No withdrawal symptoms. Objective Alert: Yes [place]: Person, Place, Date, Situation Mood: Depressed (decreased) Affect: Restricted Memory Intact: Comment (intact) Hallucinations: Other (No AVH) Delusions: No Delusion Type: Other (No delusions) Suicidal: Ideation (Denies SI) Homicidal: Ideation (No HI) Insight/Judgment poor Vitals/IOs Vital Signs Date Time Temp Pulse Resp B/P Pulse Ox O2 Delivery O2 Flow Rate FiO2 02/02/17 06:30 98.6 90 18 113/71 98 Assessment & Plan Problem List: (1) Adjustment disorder ICD Code: F43.20 (2) Polysubstance abuse ICD Code: F19.10 Assessment & Plan PT improving. Continue current tx plan. Estimated LOS: days Justification for Cont. Inpt. monitor for safety Request HC Surrog/Guard Advoc?: No Problem Qualifiers (1) Adjustment disorder: Qualified Code: F43.25 - Adjustment disorder with mixed disturbance of emotions and conduct Toyr Spring MD Feb 02, 2017 18:27
[2017-02-03 06:49] VITALS: BP 90/63; PULSE 76; RESP 18; TEMP 98.1; O2SAT 96
[2017-02-03] MEDS: ESCITALOPRAM OXALATE 10 MG TAB PO SCH (08:46)
[2017-02-03] MEDS: busPIRone HCL 10 MG TAB PO SCH (08:46)
[2017-02-03] MEDS: THIAMINE HCL 100 MG TAB PO SCH (08:46)
[2017-02-03] MEDS: hydrOXYzine HCL 50 MG TAB PO PRN (08:46)
[2017-02-03] MEDS: FOLIC ACID 1 MG TAB PO SCH (08:46)
[2017-02-03] MEDS: REMOVE OLD PATCH T-DERMAL SCH (08:51)
[2017-02-03] MEDS: NICOTINE 21 MG/24 HR PATCH T-DERMAL SCH (08:51)
[2017-02-03] MEDS ORDERED: GNP100TA3 PO (11:38)
[2017-02-03] MEDS ORDERED: BUSP10TA PO (11:38)
[2017-02-03] MEDS ORDERED: ESCI10TA PO (11:38)
[2017-02-03] MEDS ORDERED: Folic Acid PO (11:38)
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
== END 2017-02-03 12:40 | disposition home or self-care (01) | DRG 882 ==
LOC: H260 14:18
PROVIDERS: ADMIT Psychiatry & Neurology Psychiatry; ATTEND Psychiatry & Neurology Psychiatry
DX: F43.20 Adjustment disorder, unspecified (principal); F19.10 Other psychoactive substance abuse, uncomplicated; F12.10 Cannabis abuse, uncomplicated; F17.210 Nicotine dependence, cigarettes, uncomplicated; Z98.84 Bariatric surgery status; D64.9 Anemia, unspecified
CPT/HCPCS: 84443; 85025; Q0163

== ENCOUNTER 2018-07-03 22:28 | Observation (INO) ==
--- NOTE | 2018-07-03 22:39 | ED ---
HPI General Chief Complaint: Overdose Stated Complaint: Psych eval,Overdose(OBPD) Time Seen by Provider: 07/03/18 22:30 Source: EMS Mode of arrival: EMS Limitations: altered mental status History of Present Illness HPI narrative: 47-year-old female was brought to the emergency room as a Lau act by EMS for being found unresponsive in her bathtub and covered in feces. Patient was a GCS of 3 at that point as per EMS. She received IV Narcan 0.8 mg and GCS improved to 12. When patient arrived she was not having any meaningful conversation. History was limited. EMS brought all the pill bottles that were found in the location. There was an empty pill bottle of trazodone that was filled in May 2017. Patient's blood pressure upon arrival was 105 systolic. Blood sugar as per EMS was 110. MD complaint: Reports altered mental status Onset (ago): unknown Related Data Home Medications Medication Instructions Recorded Confirmed Unable to Obtain Home Meds 07/04/18 07/04/18 Previous Rx's Medication Instructions Recorded levofloxacin [Levaquin] 750 mg PO DAILY 3 Days #3 tab 07/05/18 thiamine HCl (vitamin B1) 100 mg PO DAILY #30 tab 07/05/18 Allergies Allergy/AdvReac Type Severity Reaction Status Date / Time amoxicillin Allergy Unknown Anaphylaxis Verified 07/04/18 01:23 gentamicin Allergy Hives Verified 07/05/18 14:39 Review of Systems ROS Unobtainable ROS Unobtainable: unobtainable due to mental status ROS: all other systems reviewed are negative PMFSH History History Provided By: Pbx Teacher / EMT Medical History Medical History Medical history unknown (Acute) Surgical history unknown (Acute) Social History Social History Substance History: No History of Abuse Second Hand Smoke Exposure: No Smoking Status: Current every day smoker Tobacco Type: Cigarettes and E-Cigarettes How Often Do You Have a Drink Containing Alcohol: 2 to 3 times a week Exam Narrative Exam Narrative: GENERAL: Altered mental status, slurred speech, disheveled, poor skin hygiene, feces SKIN: Focused skin assessment warm/dry. Poor skin hygiene HEAD: Atraumatic. Normocephalic. EYES: Pupils equal and round. No scleral icterus. No injection or drainage. ENT: No nasal bleeding or discharge. Mucous membranes pink and moist. NECK: Trachea midline. No JVD. CARDIOVASCULAR: Regular rate and rhythm. No murmur appreciated. RESPIRATORY: No accessory muscle use. Clear to auscultation. Breath sounds equal bilaterally. GASTROINTESTINAL: Abdomen soft, non-tender, nondistended. Hepatic and splenic margins not palpable. MUSCULOSKELETAL: No obvious deformities. No clubbing. No cyanosis. No edema. NEUROLOGICAL: Slurred speech, lethargic, GCS of 12. No obvious cranial nerve deficits. Motor grossly within normal limits. PSYCHIATRIC: Unable to assess Course Initial Documented Vital Signs Temperature 98.1 F 07/03/18 22:53 Pulse Rate 73 07/03/18 22:53 Respiratory Rate 22 07/03/18 22:53 Blood Pressure 106/44 L 07/03/18 22:53 Pulse Oximetry 97 07/03/18 22:53 Last Documented Vital Signs Temperature 98.0 F 07/05/18 07:38 Pulse Rate 65 07/05/18 09:00 Respiratory Rate 20 07/05/18 07:38 Blood Pressure 119/63 07/05/18 07:38 Pulse Oximetry 96 07/05/18 07:38 Critical Care Time Critical Care Time: Yes Total Critical Care Time: 60 Attestation: Aggregate critical care time was 60 minutes. Time to perform other separately billable procedures was not included in the critical care time. My time did not include minutes spent treating any other patients simultaneously or on activities that did not directly contribute to the patient's treatment. The services I provided to this patient were to treat and/or prevent clinically significant deterioration that could result in: Altered mental status, lactic acidosis, sepsis protocol I provided critical care services requiring my management, as noted below: Chart data review, documentation time, medication orders and management, vital sign assessments/reviewing monitor data, ordering and reviewing lab tests, ordering and interpreting/reviewing x-rays and diagnostic studies, care of the patient and discussion of the patient with the admitting physicians. Medical Decision Making MDM Narrative Medical decision making narrative: 2:45 AM patient was given a liter of IV fluid bolus. Blood test results showed elevated EtOH level and lactic acid level. A second liter of IV fluid bolus was ordered and second lactic acid which remained elevated. Based on this patient was given a dose of Zosyn and vancomycin for possible sepsis. Patient's sodium and chloride was elevated as well. Rest of the workup was within acceptable limits. Patient will be admitted to the hospitalist. Medical Screen Exam Complete: Yes Emergency Medical Condition: Yes Lab Data Result diagrams: 07/05/18 10:00 07/05/18 10:00 Lab Results 07/03/18 07/03/18 07/03/18 Range/Units 22:51 23:05 23:05 WBC 7.8 (4.0-11.0) th/mm3 RBC 3.55 L (4.00-5.30) mil/mm3 Hgb 12.7 (11.6-15.3) gm/dL Hct 37.9 (35.0-46.0) % MCV 106.8 H (80.0-100.0) fL MCH 35.8 H (27.0-34.0) pg MCHC 33.5 (32.0-36.0) % RDW 14.0 (11.6-17.2) % Plt Count 245 (150-450) th/mm3 MPV 8.1 (7.0-11.0) fL Neut % (Auto) 83.0 H (16.0-70.0) % Lymph % (Auto) 11.0 (9.0-44.0) % [place] % (Auto) 5.4 (0.0-8.0) % Eos % (Auto) 0.0 (0.0-4.0) % Baso % (Auto) 0.6 (0.0-2.0) % Neut # (Auto) 6.5 (1.8-7.7) th/mm3 Lymph # (Auto) 0.9 L (1.0-4.8) th/mm3 [place] # (Auto) 0.4 (0.0-0.9) th/mm3 Eos # (Auto) 0.0 (0.0-0.4) th/mm3 Baso # (Auto) 0.0 (0.0-0.2) th/mm3 WBC Differential . Differential Comment Auto diff final PT 10.6 (9.8-11.6) sec INR 1.0 Ratio Sodium (136-145) meq/L Potassium (3.5-5.1) meq/L Chloride (98-107) meq/L Carbon Dioxide (21.0-32.0) meq/L Anion Gap (5-15) meq/L BUN (7-18) mg/dL Creatinine (0.50-1.00) mg/dL Estimated GFR (>89) mL/min POC Glucose 92 (68-110) mg/dl Random Glucose (74-106) mg/dL Lactic Acid (0.4-2.0) mmol/L Calcium (8.5-10.1) mg/dL Magnesium (1.5-2.5) mg/dL Total Bilirubin (0.2-1.0) mg/dL AST (15-37) U/L ALT (10-53) U/L Alkaline Phosphatase (45-117) U/L Total Creatine Kinase (26-192) U/L Troponin I (0.02-0.05) ng/mL Total Protein (6.4-8.2) g/dL Albumin (3.4-5.0) g/dL Urine Color (Yellw/Straw) Urine Clarity (Clear) Urine pH (5.0-8.5) Ur Specific [place] (1.002-1.035) Urine Protein (Neg-Trace) mg/dL Urine Glucose (UA) (Negative) mg/dL Urine Ketones (Negative) mg/dL Urine Occult Blood (Negative) Urine Nitrate (Negative) Urine Bilirubin (Negative) Urine Urobilinogen (Less than 2) mg/dL Ur Leukocyte Esterase (Negative) Urine RBC (0-3) /hpf Urine WBC (0-5) /hpf Ur Squamous Epith Cells (0-5) /hpf Urine Bacteria (None) /hpf Urine Mucus (Occasional) /lpf Micro UA Comment Ur Microscopic Review Urine Culture Comments Salicylates (2.8-20.0) mg/dL Urine Opiates Screen (Neg) Acetaminophen (10.0-30.0) mcg/mL Ur Barbiturates Screen (Neg) Ur Amphetamines Screen (Neg) U Benzodiazepines Scrn (Neg) Urine Cocaine Screen (Neg) U Cannabinoids Screen (Neg) Serum Alcohol (0-5) mg/dL 07/03/18 07/03/18 07/03/18 Range/Units 23:05 23:05 23:09 WBC (4.0-11.0) th/mm3 RBC (4.00-5.30) mil/mm3 Hgb (11.6-15.3) gm/dL Hct (35.0-46.0) % MCV (80.0-100.0) fL MCH (27.0-34.0) pg MCHC (32.0-36.0) % RDW (11.6-17.2) % Plt Count (150-450) th/mm3 MPV (7.0-11.0) fL Neut % (Auto) (16.0-70.0) % Lymph % (Auto) (9.0-44.0) % [place] % (Auto) (0.0-8.0) % Eos % (Auto) (0.0-4.0) % Baso % (Auto) (0.0-2.0) % Neut # (Auto) (1.8-7.7) th/mm3 Lymph # (Auto) (1.0-4.8) th/mm3 [place] # (Auto) (0.0-0.9) th/mm3 Eos # (Auto) (0.0-0.4) th/mm3 Baso # (Auto) (0.0-0.2) th/mm3 WBC Differential Differential Comment PT (9.8-11.6) sec INR Ratio Sodium 147 H (136-145) meq/L Potassium 3.1 L (3.5-5.1) meq/L Chloride 111 H (98-107) meq/L Carbon Dioxide 25.6 (21.0-32.0) meq/L Anion Gap 10 (5-15) meq/L BUN 15 (7-18) mg/dL Creatinine 0.62 (0.50-1.00) mg/dL Estimated GFR Greater than 89 (>89) mL/min POC Glucose (68-110) mg/dl Random Glucose 86 (74-106) mg/dL Lactic Acid 2.8 H (0.4-2.0) mmol/L Calcium 8.0 L (8.5-10.1) mg/dL Magnesium 2.0 (1.5-2.5) mg/dL Total Bilirubin 0.2 (0.2-1.0) mg/dL AST 33 (15-37) U/L ALT 28 (10-53) U/L Alkaline Phosphatase 79 (45-117) U/L Total Creatine Kinase 96 (26-192) U/L Troponin I Less than 0.02 L (0.02-0.05) ng/mL Total Protein 7.3 (6.4-8.2) g/dL Albumin 3.5 (3.4-5.0) g/dL Urine Color (Yellw/Straw) Urine Clarity (Clear) Urine pH (5.0-8.5) Ur Specific [place] (1.002-1.035) Urine Protein (Neg-Trace) mg/dL Urine Glucose (UA) (Negative) mg/dL Urine Ketones (Negative) mg/dL Urine Occult Blood (Negative) Urine Nitrate (Negative) Urine Bilirubin (Negative) Urine Urobilinogen (Less than 2) mg/dL Ur Leukocyte Esterase (Negative) Urine RBC (0-3) /hpf Urine WBC (0-5) /hpf Ur Squamous Epith Cells (0-5) /hpf Urine Bacteria (None) /hpf Urine Mucus (Occasional) /lpf Micro UA Comment Ur Microscopic Review Urine Culture Comments Salicylates 5.2 (2.8-20.0) mg/dL Urine Opiates Screen (Neg) Acetaminophen Less than 2.0 L (10.0-30.0) mcg/mL Ur Barbiturates Screen (Neg) Ur Amphetamines Screen (Neg) U Benzodiazepines Scrn (Neg) Urine Cocaine Screen (Neg) U Cannabinoids Screen (Neg) Serum Alcohol 126 H (0-5) mg/dL 07/03/18 07/04/18 07/04/18 Range/Units 23:30 01:10 07:58 WBC (4.0-11.0) th/mm3 RBC (4.00-5.30) mil/mm3 Hgb (11.6-15.3) gm/dL Hct (35.0-46.0) % MCV (80.0-100.0) fL MCH (27.0-34.0) pg MCHC (32.0-36.0) % RDW (11.6-17.2) % Plt Count (150-450) th/mm3 MPV (7.0-11.0) fL Neut % (Auto) (16.0-70.0) % Lymph % (Auto) (9.0-44.0) % [place] % (Auto) (0.0-8.0) % Eos % (Auto) (0.0-4.0) % Baso % (Auto) (0.0-2.0) % Neut # (Auto) (1.8-7.7) th/mm3 Lymph # (Auto) (1.0-4.8) th/mm3 [place] # (Auto) (0.0-0.9) th/mm3 Eos # (Auto) (0.0-0.4) th/mm3 Baso # (Auto) (0.0-0.2) th/mm3 WBC Differential Differential Comment PT (9.8-11.6) sec INR Ratio Sodium (136-145) meq/L Potassium (3.5-5.1) meq/L Chloride (98-107) meq/L Carbon Dioxide (21.0-32.0) meq/L Anion Gap (5-15) meq/L BUN (7-18) mg/dL Creatinine (0.50-1.00) mg/dL Estimated GFR (>89) mL/min POC Glucose (68-110) mg/dl Random Glucose (74-106) mg/dL Lactic Acid 2.3 H 0.6 (0.4-2.0) mmol/L Calcium (8.5-10.1) mg/dL Magnesium (1.5-2.5) mg/dL Total Bilirubin (0.2-1.0) mg/dL AST (15-37) U/L ALT (10-53) U/L Alkaline Phosphatase (45-117) U/L Total Creatine Kinase (26-192) U/L Troponin I (0.02-0.05) ng/mL Total Protein (6.4-8.2) g/dL Albumin (3.4-5.0) g/dL Urine Color Yellow (Yellw/Straw) Urine Clarity Hazy H (Clear) Urine pH 5.0 (5.0-8.5) Ur Specific [place] 1.021 (1.002-1.035) Urine Protein 30 H (Neg-Trace) mg/dL Urine Glucose (UA) Negative (Negative) mg/dL Urine Ketones Trace H (Negative) mg/dL Urine Occult Blood Negative (Negative) Urine Nitrate Positive H (Negative) Urine Bilirubin Negative (Negative) Urine Urobilinogen 2.0 H (Less than 2) mg/dL Ur Leukocyte Esterase Negative (Negative) Urine RBC 2 (0-3) /hpf Urine WBC 22 H (0-5) /hpf Ur Squamous Epith Cells 1 (0-5) /hpf Urine Bacteria Rare H (None) /hpf Urine Mucus Moderate H (Occasional) /lpf Micro UA Comment Culture indicated Ur Microscopic Review Not Reportable Urine Culture Comments Culture indicated Salicylates (2.8-20.0) mg/dL Urine Opiates Screen (Neg) Acetaminophen (10.0-30.0) mcg/mL Ur Barbiturates Screen (Neg) Ur Amphetamines Screen (Neg) U Benzodiazepines Scrn (Neg) Urine Cocaine Screen (Neg) U Cannabinoids Screen (Neg) Serum Alcohol (0-5) mg/dL 07/04/18 07/05/18 07/05/18 Range/Units 11:15 10:00 10:00 WBC 4.1 (4.0-11.0) th/mm3 RBC 3.10 L (4.00-5.30) mil/mm3 Hgb 11.5 L (11.6-15.3) gm/dL Hct 33.4 L (35.0-46.0) % MCV 107.6 H (80.0-100.0) fL MCH 37.2 H (27.0-34.0) pg MCHC 34.6 (32.0-36.0) % RDW 14.0 (11.6-17.2) % Plt Count 212 (150-450) th/mm3 MPV 8.2 (7.0-11.0) fL Neut % (Auto) 55.2 (16.0-70.0) % Lymph % (Auto) 35.0 (9.0-44.0) % [place] % (Auto) 6.9 (0.0-8.0) % Eos % (Auto) 1.5 (0.0-4.0) % Baso % (Auto) 1.4 (0.0-2.0) % Neut # (Auto) 2.3 (1.8-7.7) th/mm3 Lymph # (Auto) 1.4 (1.0-4.8) th/mm3 [place] # (Auto) 0.3 (0.0-0.9) th/mm3 Eos # (Auto) 0.1 (0.0-0.4) th/mm3 Baso # (Auto) 0.1 (0.0-0.2) th/mm3 WBC Differential . Differential Comment Auto diff final PT (9.8-11.6) sec INR Ratio Sodium 146 H (136-145) meq/L Potassium 3.4 L (3.5-5.1) meq/L Chloride 115 H (98-107) meq/L Carbon Dioxide 24.6 (21.0-32.0) meq/L Anion Gap 6 (5-15) meq/L BUN 10 (7-18) mg/dL Creatinine 0.80 (0.50-1.00) mg/dL Estimated GFR 77 L (>89) mL/min POC Glucose (68-110) mg/dl Random Glucose 180 H (74-106) mg/dL Lactic Acid (0.4-2.0) mmol/L Calcium 7.5 L (8.5-10.1) mg/dL Magnesium (1.5-2.5) mg/dL Total Bilirubin 0.2 (0.2-1.0) mg/dL AST 17 (15-37) U/L ALT 19 (10-53) U/L Alkaline Phosphatase 66 (45-117) U/L Total Creatine Kinase (26-192) U/L Troponin I (0.02-0.05) ng/mL Total Protein 5.4 L D (6.4-8.2) g/dL Albumin 2.4 L D (3.4-5.0) g/dL Urine Color (Yellw/Straw) Urine Clarity (Clear) Urine pH (5.0-8.5) Ur Specific [place] (1.002-1.035) Urine Protein (Neg-Trace) mg/dL Urine Glucose (UA) (Negative) mg/dL Urine Ketones (Negative) mg/dL Urine Occult Blood (Negative) Urine Nitrate (Negative) Urine Bilirubin (Negative) Urine Urobilinogen (Less than 2) mg/dL Ur Leukocyte Esterase (Negative) Urine RBC (0-3) /hpf Urine WBC (0-5) /hpf Ur Squamous Epith Cells (0-5) /hpf Urine Bacteria (None) /hpf Urine Mucus (Occasional) /lpf Micro UA Comment Ur Microscopic Review Urine Culture Comments Salicylates (2.8-20.0) mg/dL Urine Opiates Screen Neg (Neg) Acetaminophen (10.0-30.0) mcg/mL Ur Barbiturates Screen Neg (Neg) Ur Amphetamines Screen Pos H (Neg) U Benzodiazepines Scrn Neg (Neg) Urine Cocaine Screen Neg (Neg) U Cannabinoids Screen Pos H (Neg) Serum Alcohol (0-5) mg/dL Imaging Data Radiologist's impression: Chest X-Ray 07/03/18 22:39 CONCLUSION: Negative examination. Head CT 07/04/18 00:00 CONCLUSION: Negative CT Head non contrast. . ECG Data Attestation: I personally reviewed and interpreted this ECG as follows: Interpretation: Twelve-lead EKG was reviewed by me. Normal sinus rhythm, normal axis, nonspecific ST-T wave changes. Heart rate of 76 bpm. Discharge Plan Discharge Disposition Patient Disposition: 30 Still Patient Discharge Condition Condition: Stable Discharge Order Discharge Orders: Discharge Order (Routine); Ordered 07/05/18 Ordered By: Frida Couch Discharge Details Anticipated Discharge Date: 07/05/18 Physicians Team ED Provider: Judson Rajan Primary Care Provider: UNKNOWN, Attending Provider: Oswald Baxter Other Providers: Misael Christianson Status ED Status: Left Department Discharge Information Discharge Date/Time: 07/04/18 04:21
[2018-07-03 23:35] LABS: Baso % (Auto) 0.6 % (0.0-2.0); Hematocrit 37.9 % (35.0-46.0); Hemoglobin 12.7 gm/dL (11.6-15.3); Lymph # (Auto) 0.9 th/mm3 (1.0-4.8); Mean Corpuscular HGB Conc 33.5 % (32.0-36.0); Mean Corpuscular Hemoglobin 35.8 pg (27.0-34.0); Mean Corpuscular Volume 106.8 fL (80.0-100.0); Mean Platelet Volume 8.1 fL (7.0-11.0); Mono # (Auto) 0.4 th/mm3 (0.0-0.9); Mono % (Auto) 5.4 % (0.0-8.0); Neut # (Auto) 6.5 th/mm3 (1.8-7.7); Platelet Count 245 th/mm3 (150-450); Red Blood Count 3.55 mil/mm3 (4.00-5.30); White Blood Count 7.8 th/mm3 (4.0-11.0)
[2018-07-03] MEDS ORDERED: Sod Chloride 0.9% Inj 1,000 ML IV.SIG SCH (23:45)
[2018-07-03 23:49] LABS: Anion Gap 10 meq/L (5-15)
[2018-07-03 23:56] LABS: Prothrombin Time 10.6 sec (9.8-11.6)
[2018-07-03 23:58] LABS: Alanine Aminotransferase 28 U/L (10-53); Albumin 3.5 g/dL (3.4-5.0); Alkaline Phosphatase 79 U/L (45-117); Aspartate Aminotransferase 33 U/L (15-37); Blood Urea Nitrogen 15 mg/dL (7-18); Carbon Dioxide 25.6 meq/L (21.0-32.0); Chloride 111 meq/L (98-107); Glomerular Filtration Rate Greater Than 89 mL/min (>89); Glucose,Random 86 mg/dL (74-106); Potassium 3.1 meq/L (3.5-5.1); Sodium 147 meq/L (136-145); Total Protein 7.3 g/dL (6.4-8.2)
[2018-07-04 00:15] LABS: Alcohol 126 mg/dL (0-5); Creatine Kinase 96 U/L (26-192)
--- NOTE | 2018-07-04 00:32 | XR ---
EXAM DATE: 07/04/2018 12:07 AM EDT AGE/SEX: 47 years / Female INDICATIONS: Shortness of breath, unresponsive possible overdose. CLINICAL DATA: This is the patient's initial encounter. Patient reports that signs and symptoms have been present for 1 day and indicates a pain score of Nonresponsive. MEDICAL/SURGICAL HISTORY: Non-responsive. Non-responsive. COMPAR[place]: [facility] [place]. . FINDINGS: A single AP view of the chest demonstrates the lungs to be symmetrically aerated without evidence of mass, infiltrate or effusion. The cardiomediastinal contours are unremarkable. Osseous structures a re intact. CONCLUSION: Negative examination. Electronically signed by: Gerry Finley MD 07/04/2018 12:31 AM EDT
--- NOTE | 2018-07-04 00:52 | CT ---
EXAM DATE: 07/04/2018 12:46 AM EDT AGE/SEX: 47 years / Female INDICATIONS: Altered mental status. Overdose. CLINICAL DATA: This is the patient's initial encounter. Patient reports that signs and symptoms have been present for 1 day and indicates a pain score of 0/10. MEDICAL/SURGICAL HISTORY: Non-responsive. Non-responsive. RADIATION DOSE: 52.51 CTDI (mGy) COM[facility]ISON: [facility] [place], [place] BRAIN W/O CONTRAST, 01/26/2017. . TECHNIQUE: CT of the head without contrast. Using automated exposure control and adjustment of the mA and/or kV according to patient size, radiation dose was kept as low as reasonably achievable to ob tain optimal diagnostic quality images. DICOM format image data is available electronically for revi ew and comparison. FINDINGS: Cerebrum: The ventricles are normal for age. No evidence of midline shift, mass lesion, hemorrhage or acute infarction. No extraaxial fluid collections are seen. Posterior Fossa: The cerebellum and brainstem are intact. The 4th ventricle is midline. The cerebe llopontine angle is unremarkable. Extracranial: The visualized portion of the orbits is intact. Skull: The calvaria is intact. No evidence of skull fracture. CONCLUSION: Negative CT Head non contrast. . Electronically signed by: Gerry Finley MD 07/04/2018 12:50 AM EDT
[2018-07-04] MEDS ORDERED: Pantoprazole Inj 40 MG Vial IV.PUSH ONE (01:16)
[2018-07-04] MEDS ORDERED: Sod Chloride 0.9% Inj 1,000 ML IV.SIG SCH (02:30)
[2018-07-04 02:40] LABS: Bacteria,Urine Rare /hpf; Bilirubin,Urine Negative (Negative); Clarity,Urine Hazy (Clear); Color,Urine Yellow (Yellw/Straw); Glucose,Urine (UA) Negative (Negative); Leukocyte Esterase,Urine Negative (Negative); Mucus,Urine Moderate /lpf (Occasional); Nitrite,Urine Positive (Negative); Specific Gravity,Urine 1.021 (1.002-1.035); Squamous Epithelial Cell,Urine 1 /hpf (0-5)
[2018-07-04] MEDS ORDERED: Bisacodyl 10 MG Supp RECTAL PRN (02:43)
[2018-07-04] MEDS ORDERED: Vancomycin Inj 1 GM/200 ML PIGGYBACK IV.SIG SCH (03:00)
[2018-07-04] MEDS: Sod Chloride 0.9% Inj 1,000 ML IV.CONT SCH ×3 (03:08→23:57)
--- NOTE | 2018-07-04 03:34 | P.HPIM ---
History of Present Illness Primary Care Physician: UNKNOWN History of Present Illness: This is a 47-year-old female with unknown PMH who was brought to the ER under Lau Act for apparent overdose. Per EMS, pt found lying in a dry bathtub covered in feces, multiple pill bottles around her-none of which were prescribed to her, EMS noted empty bottle of Trazodone prescribed in May 2017. Initially GCS 3, s/p Narcan w/ minimal improvement, now GCS 14-15. On arrival, BP 106/44, HR 73, O2 sat 97% on RA, Afebrile. CBC unremarkable except for MCV 106.8. INR 1.0. Na 147. Potassium 3.1. Lactic acid 2.8, repeat 2.3. Troponin negative. Alcohol 126. CXR negative. CT Head negative. While in ER, pt w/ improved mental status, tells me she took her 's Buspar among other pills, but unable to tell me which ones or how much, does admit to suicide attempt. - Diagnosis (1) Overdose (2) Suicide attempt (3) Lactic acidosis Review of Systems PAST FAMILY HISTORY: Unknown All other systems reviewed negative except as stated in HPI PMFSH - History History Provided By: Media Librarian / EMT - Medical History Medical History: Medical History (Last Reviewed 07/04/18 @ 02:43 by Judson Rajan MD) Medical history unknown Surgical history unknown - Tobacco History Smoking Status: Refused to answer - Alcohol History How Often Do You Have a Drink Containing Alcohol: Unable to Obtain - Substance Use History Substance History: Unable to Obtain - Travel History Recent Travel in the [place] Within the Last 8 Weeks: No Recent Travel Out of the Country Within the Last 8 Weeks: No - Immunization History Tetanus Immunization: Unable to Assess Medications and Allergies Active Medications: Active Medications Al Hydroxide/Mg Hydroxide (Milk Of Magnesia Liq) 30 ml PO Q12H PRN PRN Reason: Mild Constipation Bisacodyl (Dulcolax Supp) 10 mg RECTAL DAILY PRN PRN Reason: SEVERE CONSITIPATION Sodium Chloride (Ns Inj) 1,000 mls @ 1,000 mls/hr IV.SIG BOLUS NLEIDA Stop: 07/04/18 03:29 Last Admin: 07/04/18 03:07 Dose: 1,000 mls/hr Vancomycin/Sodium Chloride (Vancomycin Inj) 1 gm in 200 mls @ 200 mls/hr IV.SIG OUTPATIENT PSYCHIATRIST [facility] Sodium Chloride (Ns Inj) 1,000 mls @ 100 mls/hr IV.CONT .Q10H [facility] Last Admin: 07/04/18 03:08 Dose: 100 mls/hr Lactulose (Lactulose Liq) 30 ml PO DAILY PRN PRN Reason: SEVERE CONSITIPATION Ondansetron HCl (Zofran Inj) 4 mg IV.PUSH Q6H PRN PRN Reason: NAUSEA OR VOMITING Senna/Docusate Sodium (Gail-Colace) 1 tab PO BID [facility] Sennosides (Senokot) 17.2 mg PO Q12H PRN PRN Reason: Moderate Constipation Sodium Chloride (Ns Flush) 2 ml IV.FLUSH PRN PRN PRN Reason: FLUSH AFTER USING IV ACCESS Allergies Allergy/AdvReac Type Severity Reaction Status Date / Time amoxicillin Allergy Unknown Anaphylaxis Verified 07/04/18 01:23 Home Medications Medication Instructions Recorded Confirmed Type Unable to Obtain Home Meds 07/04/18 07/04/18 History Exam Vital signs: Vital Signs 07/03/18 22:53 07/03/18 22:57 07/04/18 01:17 Temperature 98.1 F 98.6 F Pulse Rate 73 73 96 H Respiratory Rate 22 18 Blood Pressure 106/44 L 116/67 Pulse Oximetry 97 97 97 07/04/18 03:11 Temperature Pulse Rate 96 H Respiratory Rate Blood Pressure Pulse Oximetry Intake & Output 07/03/18 07/03/18 07/04/18 06:59 18:59 06:59 Intake Total 1000 / 1000 Balance 1000 / 1000 Weight 74.843 kg Intake: IV 1000 / 1000 NS Inj 1,000 ML @ 1000 mls/hr 1000 / 1000 IV.SIG BOLUS [facility] Rx#:[id number] Narrative: PE: GENERAL: Middle-aged white female in no acute distress, lethargic, in restraints. SKIN: Focused skin assessment warm and dry. HEENT: PERRLA, EOMI. No scleral icterus or conjunctival pallor. No lid lag or facial droop. CARDIOVASCULAR: Regular rate and rhythm. No obvious murmurs to auscultation. No chest tenderness to palpation. RESPIRATORY: No obvious rhonchi or wheezing. Clear to auscultation. Breath sounds equal bilaterally. GASTROINTESTINAL: Abdomen soft, non-tender, nondistended. BS normal. MUSCULOSKELETAL: Extremities without clubbing, cyanosis, or edema. No obvious deformities. NEUROLOGICAL: Lethargic from overdose, but answering questions appropriately. No focal neurologic deficits. Moving both upper and lower extremities spontaneously. PSYCHIATRIC: Appropriate mood and affect. Insight and judgment normal. Results - Labs CBC & Chem 7: 07/03/18 23:05 07/03/18 23:05 Labs: Short CBC 07/03/18 Range/Units 23:05 WBC 7.8 (4.0-11.0) th/mm3 Hgb 12.7 (11.6-15.3) gm/dL Hct 37.9 (35.0-46.0) % Plt Count 245 (150-450) th/mm3 BMP 07/03/18 23:05 Sodium 147 H Potassium 3.1 L Chloride 111 H Carbon Dioxide 25.6 BUN 15 Creatinine 0.62 Calcium 8.0 L Cardiac Enzymes 07/03/18 Range/Units 23:05 Total Creatine Kinase 96 (26-192) U/L Troponin I Less than 0.02 L (0.02-0.05) ng/mL Liver Function 07/03/18 Range/Units 23:05 Total Bilirubin 0.2 (0.2-1.0) mg/dL AST 33 (15-37) U/L ALT 28 (10-53) U/L Alkaline Phosphatase 79 (45-117) U/L Albumin 3.5 (3.4-5.0) g/dL Urine 07/03/18 Range/Units 23:30 Urine Color Yellow (Yellw/Straw) Urine Clarity Hazy H (Clear) Urine pH 5.0 (5.0-8.5) Ur Specific [place] 1.021 (1.002-1.035) Urine Protein 30 H (Neg-Trace) mg/dL Urine Glucose (UA) Negative (Negative) mg/dL - Imaging Impressions Chest X-Ray 07/03/18 22:39 CONCLUSION: Negative examination. Head CT 07/04/18 00:00 CONCLUSION: Negative CT Head non contrast. . Caprini VTE Risk Assessment Caprini VTE Risk Assessment: No/Low Risk (score <= 1) Caprini Risk Assessment Model: Point Value = 1 Point Value = 2 Point Value = 3 Point Value = 5 Age 41-60 Minor surgery BMI > 25 kg/m2 Swollen legs Varicose veins or History of unexplained or recurrent spontaneous Oral contraceptives or hormone replacement Sepsis (< 1 month) Serious lung disease, including pneumonia (< 1 month) Abnormal pulmonary function Acute myocardial infarction Congestive heart failure (< 1 month) History of inflammatory bowel disease Medical patient at bed rest Age 61-74 Arthroscopic surgery Major open surgery (> 45 min) Laparoscopic surgery (> 45 min) Malignancy Confined to bed (> 72 hours) Immobilizing plaster cast Central venous access Age >= 75 History of VTE Family history of VTE Factor V Leiden Prothrombin [id number] Lupus anticoagulant Anticardiolipin antibodies Elevated serum homocysteine Heparin-induced thrombocytopenia Other congenital or acquired thrombophilia Stroke (< 1 month) Elective arthroplasty Hip, pelvis, or leg fracture Acute spinal cord injury (< 1 month) Prophylaxis Regimen: Total Risk Factor Score Risk Level Prophylaxis Regimen 0-1 Low Early ambulation 2 Moderate Order ONE of the following: *Sequential Compression Device (SCD) *Heparin 5000 units SQ BID 3-4 Higher Order ONE of the following medications: *Heparin 5000 units SQ TID *Enoxaparin/Lovenox 40 mg SQ daily (WT < 150 kg, CrCl > 30 mL/min) *Enoxaparin/Lovenox 30 mg SQ daily (WT < 150 kg, CrCl > 10-29 mL/min) *Enoxaparin/Lovenox 30 mg SQ BID (WT < 150 kg, CrCl > 30 mL/min) AND/OR *Sequential Compression Device (SCD) 5 or more Highest Order ONE of the following medications: *Heparin 5000 units SQ TID (Preferred with Epidurals) *Enoxaparin/Lovenox 40 mg SQ daily (WT < 150 kg, CrCl > 30 mL/min) *Enoxaparin/Lovenox 30 mg SQ daily (WT < 150 kg, CrCl > 10-29 mL/min) *Enoxaparin/Lovenox 30 mg SQ BID (WT < 150 kg, CrCl > 30 mL/min) AND *Sequential Compression Device (SCD) Assessment and Plan - Assessment (1) Overdose Code(s): T50.901A - Poisoning by unspecified drugs, medicaments and biological substances, accidental (unintentional), initial encounter Status: Acute (2) Suicide attempt Code(s): T14.91XA - Suicide attempt, initial encounter Status: Acute (3) Lactic acidosis Code(s): E87.2 - Acidosis Status: Acute - Plan A/P: 1. Overdose: Intentional. Unclear exactly what/how much she took, found to have empty Trazodone bottle prescribed in May 2017, but tells me she took Buspar. Mental status currently improved from arrival, admit for Observation, Neuro Checks, telemetry. CT Head w/ no acute findings, images reviewed. 2. Lactic Acidosis: Lactic Acid 2.8, s/p IVF w/ repeat Lactic Acid 2.3, afebrile, no leukocytosis, likely secondary to dehydration/drug intoxication. IVF for hydration, monitor I/O, repeat Lactic Acid, start IV Levaquin for UTI. 3. Suicide Attempt: currently under [place] Act for suicide attempt w/ intentional overdose. Consult Psychiatry. [place] 4. DVT Prophylaxis: SCD/Teds 5. Social work for d/c planning as needed. 6. Case discussed w/ ER physician at length, labs/records/imaging reviewed by me.
[2018-07-04] MEDS: Senna/Docusate Sodium 8.6/50 MG Tablet PO SCH ×2 (09:48→20:00)
[2018-07-04 11:41] LABS: Amphetamine Screen,Urine Pos (Neg); Barbiturate Screen,Urine Neg (Neg); Cannabinoid Screen,Urine Pos (Neg); Cocaine Screen,Urine Neg (Neg)
[2018-07-04 11:48] LABS: Opiate Screen,Urine Neg (Neg)
--- NOTE | 2018-07-04 12:58 | P.PN ---
Subjective Interval history: Follow-up for overdose. Patient is still very drowsy. She awakens to voice. She is oriented to self, place, and month/year, but does not explain the events leading up to her admission. States she just feels really tired. She has some wheezing on exam, and she does endorse some shortness of breath and nonproductive cough. She states she uses an inhaler at home. Denies any chest pain. Denies any other medical complaints at this time. Physical Exam Vital signs: Vital Signs 07/03/18 22:53 07/03/18 22:57 07/04/18 01:17 Temperature 98.1 F 98.6 F Pulse Rate 73 73 96 H Respiratory Rate 22 18 Blood Pressure 106/44 L 116/67 Pulse Oximetry 97 97 97 07/04/18 03:11 07/04/18 04:00 07/04/18 07:31 Temperature 98.4 F Pulse Rate 96 H 80 Respiratory Rate 22 Blood Pressure 122/67 Pulse Oximetry 95 96 07/04/18 08:00 07/04/18 11:52 Temperature 98.0 F 98.9 F Pulse Rate 83 81 Respiratory Rate 18 18 Blood Pressure 109/60 99/53 L Pulse Oximetry 96 99 Intake & Output 07/03/18 07/04/18 07/04/18 18:59 06:59 18:59 Intake Total 2250 / 2250 Output Total 400 / 400 Balance 2250 / 2250 -400 / -400 Weight 74.843 kg Intake: IV 2250 / 2250 Azactam Inj 1,000 MG In NS Inj 100 / 100 100 ML @ 200 mls/hr IV.SIG ONCE ONE Rx#:[id number] Levaquin 750 mg Premix Inj 150 150 / 150 ML @ 100 mls/hr IV.SIG Q24H [facility] Rx#:[id number] NS Inj 1,000 ML @ 1000 mls/hr 1999 / 1999 IV.SIG BOLUS NELIDA Rx#:[id number] Output: Urine 400 / 400 Other: # Voids 1 Narrative: GENERAL: Well-nourished, well-developed unkempt appearing middle aged female patient in NAD. SKIN: Warm and dry. No rash. HEENT: Normocephalic. Atraumatic. Pupils equal and round. Mucous membranes pink and moist. NECK: Supple. Trachea midline. CARDIOVASCULAR: Regular rate and rhythm. No murmur appreciated. RESPIRATORY: No accessory muscle use. Mild diffuse expiratory wheezing throughout. Breath sounds equal bilaterally. GASTROINTESTINAL: Abdomen soft, non-tender, nondistended. Normoactive bowel sounds x4. MUSCULOSKELETAL: No obvious deformities. Extremities without clubbing, cyanosis , or edema. NEUROLOGICAL: Drowsy but answering questions appropriately. No obvious cranial nerve deficits. Motor grossly within normal limits. Moving all extremities spontaneously. Normal speech. PSYCHIATRIC: Appropriate mood and affect; insight and judgment normal. - Urinary Catheter Management Straight Cath placed during this visit: yes Reason for continuing: Not indwelling catheter Insertion date: 07/04/18 Insertion time: 23:45 Results - Labs CBC & Chem 7: 07/03/18 23:05 07/03/18 23:05 Laboratory Results - last 24 hr 07/03/18 07/03/18 07/03/18 22:51 23:05 23:05 WBC 7.8 RBC 3.55 L Hgb 12.7 Hct 37.9 MCV 106.8 H MCH 35.8 H MCHC 33.5 RDW 14.0 Plt Count 245 MPV 8.1 Neut % (Auto) 83.0 H Lymph % (Auto) 11.0 [place] % (Auto) 5.4 Eos % (Auto) 0.0 Baso % (Auto) 0.6 Neut # (Auto) 6.5 Lymph # (Auto) 0.9 L [place] # (Auto) 0.4 Eos # (Auto) 0.0 Baso # (Auto) 0.0 WBC Differential . Differential Comment Auto diff final PT 10.6 INR 1.0 Sodium Potassium Chloride Carbon Dioxide Anion Gap BUN Creatinine Estimated GFR POC Glucose 92 Random Glucose Lactic Acid Calcium Magnesium Total Bilirubin AST ALT Alkaline Phosphatase Total Creatine Kinase Troponin I Total Protein Albumin Urine Color Urine Clarity Urine pH Ur Specific [place] Urine Protein Urine Glucose (UA) Urine Ketones Urine Occult Blood Urine Nitrate Urine Bilirubin Urine Urobilinogen Ur Leukocyte Esterase Urine RBC Urine WBC Ur Squamous Epith Cells Urine Bacteria Urine Mucus Micro UA Comment Ur Microscopic Review Urine Culture Comments Salicylates Urine Opiates Screen Acetaminophen Ur Barbiturates Screen Ur Amphetamines Screen U Benzodiazepines Scrn Urine Cocaine Screen U Cannabinoids Screen Serum Alcohol 07/03/18 07/03/18 07/03/18 23:05 23:05 23:09 WBC RBC Hgb Hct MCV MCH MCHC RDW Plt Count MPV Neut % (Auto) Lymph % (Auto) [place] % (Auto) Eos % (Auto) Baso % (Auto) Neut # (Auto) Lymph # (Auto) [place] # (Auto) Eos # (Auto) Baso # (Auto) WBC Differential Differential Comment PT INR Sodium 147 H Potassium 3.1 L Chloride 111 H Carbon Dioxide 25.6 Anion Gap 10 BUN 15 Creatinine 0.62 Estimated GFR Greater than 89 POC Glucose Random Glucose 86 Lactic Acid 2.8 H Calcium 8.0 L Magnesium 2.0 Total Bilirubin 0.2 AST 33 ALT 28 Alkaline Phosphatase 79 Total Creatine Kinase 96 Troponin I Less than 0.02 L Total Protein 7.3 Albumin 3.5 Urine Color Urine Clarity Urine pH Ur Specific [place] Urine Protein Urine Glucose (UA) Urine Ketones Urine Occult Blood Urine Nitrate Urine Bilirubin Urine Urobilinogen Ur Leukocyte Esterase Urine RBC Urine WBC Ur Squamous Epith Cells Urine Bacteria Urine Mucus Micro UA Comment Ur Microscopic Review Urine Culture Comments Salicylates 5.2 Urine Opiates Screen Acetaminophen Less than 2.0 L Ur Barbiturates Screen Ur Amphetamines Screen U Benzodiazepines Scrn Urine Cocaine Screen U Cannabinoids Screen Serum Alcohol 126 H 07/03/18 07/04/18 07/04/18 23:30 01:10 07:58 WBC RBC Hgb Hct MCV MCH MCHC RDW Plt Count MPV Neut % (Auto) Lymph % (Auto) [place] % (Auto) Eos % (Auto) Baso % (Auto) Neut # (Auto) Lymph # (Auto) [place] # (Auto) Eos # (Auto) Baso # (Auto) WBC Differential Differential Comment PT INR Sodium Potassium Chloride Carbon Dioxide Anion Gap BUN Creatinine Estimated GFR POC Glucose Random Glucose Lactic Acid 2.3 H 0.6 Calcium Magnesium Total Bilirubin AST ALT Alkaline Phosphatase Total Creatine Kinase Troponin I Total Protein Albumin Urine Color Yellow Urine Clarity Hazy H Urine pH 5.0 Ur Specific [place] 1.021 Urine Protein 30 H Urine Glucose (UA) Negative Urine Ketones Trace H Urine Occult Blood Negative Urine Nitrate Positive H Urine Bilirubin Negative Urine Urobilinogen 2.0 H Ur Leukocyte Esterase Negative Urine RBC 2 Urine WBC 22 H Ur Squamous Epith Cells 1 Urine Bacteria Rare H Urine Mucus Moderate H Micro UA Comment Culture indicated Ur Microscopic Review Not Reportable Urine Culture Comments Culture indicated Salicylates Urine Opiates Screen Acetaminophen Ur Barbiturates Screen Ur Amphetamines Screen U Benzodiazepines Scrn Urine Cocaine Screen U Cannabinoids Screen Serum Alcohol 07/04/18 11:15 WBC RBC Hgb Hct MCV MCH MCHC RDW Plt Count MPV Neut % (Auto) Lymph % (Auto) [place] % (Auto) Eos % (Auto) Baso % (Auto) Neut # (Auto) Lymph # (Auto) [place] # (Auto) Eos # (Auto) Baso # (Auto) WBC Differential Differential Comment PT INR Sodium Potassium Chloride Carbon Dioxide Anion Gap BUN Creatinine Estimated GFR POC Glucose Random Glucose Lactic Acid Calcium Magnesium Total Bilirubin AST ALT Alkaline Phosphatase Total Creatine Kinase Troponin I Total Protein Albumin Urine Color Urine Clarity Urine pH Ur Specific [place] Urine Protein Urine Glucose (UA) Urine Ketones Urine Occult Blood Urine Nitrate Urine Bilirubin Urine Urobilinogen Ur Leukocyte Esterase Urine RBC Urine WBC Ur Squamous Epith Cells Urine Bacteria Urine Mucus Micro UA Comment Ur Microscopic Review Urine Culture Comments Salicylates Urine Opiates Screen Neg Acetaminophen Ur Barbiturates Screen Neg Ur Amphetamines Screen Pos H U Benzodiazepines Scrn Neg Urine Cocaine Screen Neg U Cannabinoids Screen Pos H Serum Alcohol Microbiology 07/03/18 23:05 Blood - Peripheral Aerobic Blood Culture - Preliminary No growth in 1 day 07/03/18 23:05 Blood - Peripheral Anaerobic Blood Culture - Preliminary No growth in 1 day 07/03/18 23:09 Blood - Peripheral Aerobic Blood Culture - Preliminary No growth in 1 day 07/03/18 23:09 Blood - Peripheral Anaerobic Blood Culture - Preliminary No growth in 1 day - Imaging Impressions Chest X-Ray 07/03/18 22:39 CONCLUSION: Negative examination. Head CT 07/04/18 00:00 CONCLUSION: Negative CT Head non contrast. . Assessment and Plan - Assessment (1) Overdose Code(s): T50.901A - Poisoning by unspecified drugs, medicaments and biological substances, accidental (unintentional), initial encounter Status: Acute (2) Suicide attempt Code(s): T14.91XA - Suicide attempt, initial encounter Status: Acute (3) Lactic acidosis Code(s): E87.2 - Acidosis Status: Acute - Plan 47-year-old female with unknown PMH who was brought to the ER under [place] Act for apparent overdose. Per EMS, pt found lying in a dry bathtub covered in feces, multiple pill bottles around her-none of which were prescribed to her, EMS noted empty bottle of Trazodone prescribed in May 2017. Initially GCS 3, s/p Narcan w/ minimal improvement, now GCS 14-15. Overdose: Intentional. Unclear exactly what/how much she took, found to have empty Trazodone bottle prescribed in May 2017, but tells me she took Buspar. -CT Head w/ no acute findings, images reviewed. -Mental status currently improved from arrival -Monitor in Observation -Neuro Checks -Monitor on telemetry. -Continue to improve however still very drowsy UTI with Lactic Acidosis: Lactic Acid 2.8, s/p IVF w/ repeat Lactic Acid 2.3, afebrile, no leukocytosis, likely secondary to dehydration/drug intoxication vs UTI. -UA positive for nitrates and WBCs -Continue on IV Levaquin for UTI -Blood cultures with NGTD -Give IVF for hydration -monitor I/O -repeat Lactic Acid 0.6, resolved -await urine culture Suicide Attempt: currently under [place] Act for suicide attempt w/ intentional overdose. -Consult Psychiatry. -Sitter Mild COPD Exacerbation: patient with wheezing on exam with nonproductive cough -start duonebs q6h and q4h prn -O2 sat stable on room air DVT Prophylaxis: SCD/Teds
[2018-07-04] MEDS ORDERED: Haloperidol Inj 5 MG/ML Ampul IV.PUSH PRN (13:55)
[2018-07-04] MEDS ORDERED: LORazepam 1 MG Tablet PO PRN (13:55)
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
[2018-07-04] MEDS: Multivitamin/Minerals Therapeutic Tablet PO SCH (17:02)
[2018-07-04] MEDS: Folic Acid 1 MG Tablet PO SCH (17:02)
[2018-07-05 07:40] VITALS: BP 119/63; RESP 20; TEMP 98; O2SAT 96
--- NOTE | 2018-07-05 09:15 | P.PN ---
Subjective Interval history: Follow-up for overdose. The patient is awake, alert, oriented x4. She denies any medical complaints including no fever, headache, lightheadedness, dizziness , chest pain, palpitations, shortness of breath, or abdominal/urinary complaints. She states her wheezing has improved after receiving breathing treatments. She reports an occasional nonproductive cough, consistent with baseline. Physical Exam Vital signs: Vital Signs 07/04/18 11:52 07/04/18 13:04 07/04/18 15:51 Temperature 98.9 F 99.4 F Pulse Rate 81 80 79 Respiratory Rate 18 16 18 Blood Pressure 99/53 L 135/64 Pulse Oximetry 99 97 07/04/18 19:09 07/04/18 20:00 07/05/18 00:00 Temperature 99.0 F 99.0 F Pulse Rate 93 H 96 H 65 Respiratory Rate 20 19 21 Blood Pressure 93/56 L 129/75 Pulse Oximetry 97 96 98 07/05/18 03:00 07/05/18 07:30 07/05/18 07:38 Temperature 98.0 F Pulse Rate 69 70 62 Respiratory Rate 16 20 Blood Pressure 119/63 Pulse Oximetry 98 96 Intake & Output 07/04/18 07/05/18 07/05/18 19:59 06:59 18:59 Intake Total Output Total Balance Intake: IV NS Inj 1,000 ML @ 100 mls/hr IV .CONT .Q10H [facility] Rx#:[id number] Levaquin 750 mg Premix Inj 150 ML @ 100 mls/hr IV.SIG Q24H NEL[facility] Rx#:[id number] Oral Output: Urine Other: # Voids Narrative: GENERAL: Well-nourished, well-developed middle aged female patient in [facility]. SKIN: Warm and dry. No rash. Tattoos. HEENT: Normocephalic. Atraumatic. Pupils equal and round. Mucous membranes pink and moist. CARDIOVASCULAR: Regular rate and rhythm. No murmur appreciated. RESPIRATORY: No accessory muscle use. Clear to auscultation. Breath sounds equal bilaterally. GASTROINTESTINAL: Abdomen soft, non-tender, nondistended. Normoactive bowel sounds x4. MUSCULOSKELETAL: No obvious deformities. Extremities without clubbing, cyanosis , or edema. NEUROLOGICAL: AAO x4. No obvious cranial nerve deficits. Motor grossly within normal limits. Moving all extremities spontaneously. Normal speech. PSYCHIATRIC: Appropriate mood and affect; insight and judgment normal. - Urinary Catheter Management Straight Cath placed during this visit: yes Reason for continuing: Not indwelling catheter Insertion date: 07/04/18 Insertion time: 23:45 Results - Labs CBC & Chem 7: 07/03/18 23:05 07/03/18 23:05 Laboratory Results - last 24 hr 07/04/18 11:15 Urine Opiates Screen Neg Ur Barbiturates Screen Neg Ur Amphetamines Screen Pos H U Benzodiazepines Scrn Neg Urine Cocaine Screen Neg U Cannabinoids Screen Pos H Microbiology 07/03/18 23:05 Blood - Peripheral Aerobic Blood Culture - Preliminary No growth in 1 day 07/03/18 23:05 Blood - Peripheral Anaerobic Blood Culture - Preliminary No growth in 1 day 07/03/18 23:09 Blood - Peripheral Aerobic Blood Culture - Preliminary No growth in 1 day 07/03/18 23:09 Blood - Peripheral Anaerobic Blood Culture - Preliminary No growth in 1 day - Imaging Chest X-Ray 07/03/18 22:39 CONCLUSION: Negative examination. Head CT 07/04/18 00:00 CONCLUSION: Negative CT Head non contrast. . - Procedures None. Assessment and Plan - Assessment (1) Overdose Code(s): T50.901A - Poisoning by unspecified drugs, medicaments and biological substances, accidental (unintentional), initial encounter Status: Acute (2) Suicide attempt Code(s): T14.91XA - Suicide attempt, initial encounter Status: Acute (3) Lactic acidosis Code(s): E87.2 - Acidosis Status: Acute - Plan 47-year-old female with unknown PMH who was brought to the ER under Lau Act for apparent overdose. Per EMS, pt found lying in a dry bathtub covered in feces, multiple pill bottles around her-none of which were prescribed to her, EMS noted empty bottle of Trazodone prescribed in May 2017. Initially GCS 3, s/p Narcan w/ minimal improvement, now GCS 14-15. Overdose with toxic encephalopathy: Intentional overdose. Unclear exactly what /how much she took, found to have empty Trazodone bottle prescribed in May 2017 , but states she took Buspar. -CT Head w/ no acute findings, images reviewed. -UDS positive for amphetamines and cannabinoids; EtOH level 126 -Mental status currently improved from arrival -Monitor in Observation -Neuro Checks -Monitor on telemetry. -AAO x4, encephalopathy resolved. UTI with Lactic Acidosis: Lactic Acid 2.8, s/p IVF w/ repeat Lactic Acid 2.3, afebrile, no leukocytosis, likely secondary to dehydration/drug intoxication vs UTI. -UA positive for nitrates and WBCs -Continue on IV Levaquin for UTI -Blood cultures with NGTD -Given IVF for hydration -monitor I/O -repeat Lactic Acid 0.6, resolved -Will continue with Levaquin until urine culture resulted, however patient has no urinary symptoms Suicide Attempt: currently under Lau Act for suicide attempt w/ intentional overdose. -Consult Psychiatry, recommends admission to inpatient psychiatry -Sitter Mild COPD Exacerbation: patient with wheezing on exam with nonproductive cough -start duonebs q6h and q4h prn -O2 sat stable on room air -Symptoms much improved Alcohol abuse: Ongoing -Counseled on cessation -Continue thiamine/folate/multivitamin -CIWA protocol Hypokalemia: Potassium 3.1 -Replaced with KCl DVT Prophylaxis: SCD/Teds Discharge Planning: Patient is medically stable for discharge to inpatient psychiatry. Medicine team to follow urine culture while in psychiatry. Discharge patient to inpatient psychiatry Condition on discharge: Stable Regular Diet as tolerated Ad Xena activity Rx written: Levaquin 750 mg p.o. daily times 3 days (can discontinue if urine culture negative), albuterol inhaler Follow-up with primary care physician and psychiatry
[2018-07-05] MEDS: Sod Chloride 0.9% Inj 1,000 ML IV.CONT SCH (10:01)
[2018-07-05] MEDS: Senna/Docusate Sodium 8.6/50 MG Tablet PO SCH (10:01)
[2018-07-05] MEDS: Folic Acid 1 MG Tablet PO SCH (10:01)
[2018-07-05] MEDS: Multivitamin/Minerals Therapeutic Tablet PO SCH (10:01)
[2018-07-05 10:39] VITALS: PULSE 65
[2018-07-05 10:46] LABS: Baso # (Auto) 0.1 th/mm3 (0.0-0.2); Baso % (Auto) 1.4 % (0.0-2.0); Eos # (Auto) 0.1 th/mm3 (0.0-0.4); Eos % (Auto) 1.5 % (0.0-4.0); Hematocrit 33.4 % (35.0-46.0); Hemoglobin 11.5 gm/dL (11.6-15.3); Lymph # (Auto) 1.4 th/mm3 (1.0-4.8); Mean Corpuscular HGB Conc 34.6 % (32.0-36.0); Mean Corpuscular Hemoglobin 37.2 pg (27.0-34.0); Mean Corpuscular Volume 107.6 fL (80.0-100.0); Mean Platelet Volume 8.2 fL (7.0-11.0); Mono # (Auto) 0.3 th/mm3 (0.0-0.9); Mono % (Auto) 6.9 % (0.0-8.0); Neut # (Auto) 2.3 th/mm3 (1.8-7.7); Neut % (Auto) 55.2 % (16.0-70.0); Platelet Count 212 th/mm3 (150-450); White Blood Count 4.1 th/mm3 (4.0-11.0)
[2018-07-05 11:29] LABS: Alanine Aminotransferase 19 U/L (10-53); Albumin 2.4 g/dL (3.4-5.0); Alkaline Phosphatase 66 U/L (45-117); Anion Gap 6 meq/L (5-15); Aspartate Aminotransferase 17 U/L (15-37); Blood Urea Nitrogen 10 mg/dL (7-18); Calcium 7.5 mg/dL (8.5-10.1); Carbon Dioxide 24.6 meq/L (21.0-32.0); Chloride 115 meq/L (98-107); Glomerular Filtration Rate 77 mL/min (>89); Glucose,Random 180 mg/dL (74-106); Potassium 3.4 meq/L (3.5-5.1); Sodium 146 meq/L (136-145); Total Protein 5.4 g/dL (6.4-8.2)
--- NOTE | 2018-07-06 00:15 | ECG ---
Date Performed: 07/04/2018 Time Performed: 00:12:21 PTAGE: 47 years EKG: Sinus rhythm POSSIBLE LEFT ATRIAL ENLARGEMENT NONSPECIFIC T-WAVE ABNORMALITY BORDERLINE ECG PREVIOUS TRACING : 01/26/2017 22.13 Compared to previous tracing, rate has decreased DOCTOR: Surya Dangelo Interpretating Date/Time 07/06/2018 00:14:35
== END 2018-07-05 11:00 ==
LOC: NEDA 22:28 → NEPC 22:28 → NEPGCP 07-04 03:55
PROVIDERS: ADMIT Hospitalist; ATTEND Hospitalist

== ENCOUNTER 2018-07-05 10:53 | Inpatient (IN) ==
[2018-07-05] MEDS ORDERED: Aluminum/Magnesium/Simethacone Susp 30 ML UDC PO PRN (11:44)
[2018-07-05] MEDS ORDERED: LORazepam 1 MG Tablet PO PRN (11:50)
[2018-07-05] MEDS ORDERED: Haloperidol Inj 5 MG/ML Ampul IV.PUSH PRN (11:50)
[2018-07-05] MEDS ORDERED: Influenza (Quadrivalent) Vaccine 0.5 ML Syringe IM ONE (13:30)
[2018-07-05] MEDS: Ibuprofen 600 MG Tablet PO SCH ×2 (14:17→22:14)
[2018-07-05] MEDS: Folic Acid 1 MG Tablet PO SCH (14:17)
[2018-07-06] MEDS: Ibuprofen 600 MG Tablet PO SCH (06:17)
[2018-07-06] MEDS: Folic Acid 1 MG Tablet PO SCH (08:52)
[2018-07-06] MEDS ORDERED: levoFLOXacin 750 MG Tablet PO SCH (09:00)
--- NOTE | 2018-07-06 13:58 | P.CONIM ---
History of Present Illness Service: [facility] Consult date: 07/06/18 Reason for Consult: uti Primary Care Provider: UNKNOWN Chief Complaint: overdose/uti History of Present Illness: This is a 47-year-old female with unknown PMH who was brought to the ER under Lau Act for apparent overdose. Per EMS, pt found lying in a dry bathtub covered in feces, multiple pill bottles around her-none of which were prescribed to her, EMS noted empty bottle of Trazodone prescribed in May 2017. Initially GCS 3, s/p Narcan w/ minimal improvement, now GCS 14-15. On arrival, BP 106/44, HR 73, O2 sat 97% on RA, Afebrile. CBC unremarkable except for MCV 106.8. INR 1.0. Na 147. Potassium 3.1. Lactic acid 2.8, repeat 2.3. Troponin negative. Alcohol 126. CXR negative. CT Head negative. While in ER, pt w/ improved mental status, tells me she took her 's Buspar among other pills, but unable to tell me which ones or how much, does admit to suicide attempt. Pt. also found to have UTI and was started on antibiotic for treatment. Patient admitted to the Psychiatric unit for treatment and management. Medicine team is consulted for medical management. Patient seen and examined sitting on the bed, denies any abdominal pain or urinary discomfort. Addressed concern of needing to eat small meals at a time due to history of gastric sleeve x 5 years ago. Patient stated she was 300 lbs then. Patient admitted had OD on different medications such as tramadol and lunesta and had taken what was in the bottle. Patient denies hurting herself at this time and realized it. patient denies any headache, dizziness, chest pain or SOB. patient denies any abdominal pain, nausea, vomiting, diarrhea or constipation. patient denies any fever or chills. Review of Systems All other systems reviewed negative except as stated in HPI PMFSH - History History Provided By: Patient - Medical History Medical History: Medical History (Last Updated 07/06/18 @ 14:01 by FRANKLIN Ruiz) Tobacco dependence Medical history unknown Surgical history unknown - Surgical History Surgical History: Surgical History (Last Updated 07/06/18 @ 14:01 by FRANKLIN Ruiz) S/P gastric surgery Status post gastric banding - Social History I have reviewed the patient's Social History: Yes - Tobacco History Second Hand Smoke Exposure: Yes Tobacco Use In Past 30 Days: Yes Smoking Status: Current every day smoker Tobacco Type: Cigarettes, E-Cigarettes - Alcohol History How Often Do You Have a Drink Containing Alcohol: 2 to 3 times a week - Substance Use History Substance History: No History of Abuse - Immunization History Hx Influenza Vaccine This Season: No Medications and Allergies Active Medications: Active Medications Al Hydrox/Mg Hydrox/Simethicone (Mag-Al Plus Susp Liq) 30 ml PO Q6H PRN PRN Reason: DYSPEPSIA Flumazenil (Romazecon Inj) 0.2 mg IV.PUSH Q1M PRN PRN Reason: OVERSEDATION Folic Acid (Folic Acid) 1 mg PO DAILY [facility] Last Admin: 07/06/18 08:52 Dose: 1 mg Haloperidol Lactate (Haldol Inj) 1 mg IV.PUSH Q15M PRN PRN Reason: for severe agitation Hydroxyzine HCl (Atarax) 50 mg PO Q6H PRN PRN Reason: ANXIETY Last Admin: 07/06/18 10:58 Dose: 50 mg Ibuprofen (Motrin) 600 mg PO Q8HR [facility] Last Admin: 07/06/18 06:17 Dose: 600 mg Levofloxacin (Levaquin) 750 mg PO DAILY [facility] Stop: 07/11/18 09:00 Last Admin: 07/06/18 09:06 Dose: Not Given Lorazepam (Ativan) 1 mg PO Q4H PRN PRN Reason: for CIWA 8-10 Last Admin: 07/05/18 17:03 Dose: 1 mg Lorazepam (Ativan) 2 mg PO Q2H PRN PRN Reason: for CIWA 11-14 Lorazepam (Ativan Inj) 2 mg IV.PUSH Q2H PRN PRN Reason: for CIWA 11-14 Lorazepam (Ativan Inj) 2 mg IV.PUSH Q1H PRN PRN Reason: for CIWA 15-20 Lorazepam (Ativan Inj) 2 mg IV.PUSH Q15M PRN PRN Reason: for CIWA > 20 Lorazepam (Ativan Inj) 1 mg IV.PUSH Q4H PRN PRN Reason: for CIWA 8-10 Multivitamins (Theragran) 1 tab PO DAILY [facility] Last Admin: 07/06/18 08:52 Dose: 1 tab Thiamine HCl (Vitamin B1) 100 mg PO DAILY [facility] Last Admin: 07/06/18 08:52 Dose: 100 mg Allergies Allergy/AdvReac Type Severity Reaction Status Date / Time amoxicillin Allergy Unknown Anaphylaxis Verified 07/04/18 01:23 gentamicin Allergy Hives Verified 07/05/18 14:39 Home Medications Medication Instructions Recorded Confirmed Type Unable to Obtain Home Meds 07/04/18 07/04/18 History Exam Vital signs: Vital Signs 07/05/18 17:22 07/05/18 17:41 07/06/18 05:21 Temperature 98.3 F Pulse Rate 73 65 61 Respiratory Rate 16 17 Blood Pressure 169/72 H 140/65 116/66 Pulse Oximetry 98 98 Intake & Output 07/05/18 07/06/18 07/06/18 18:59 06:59 18:59 Weight 55.1 kg Other: Weight On Admission 55.1 kg Narrative: GENERAL: well developed, well nourished, female in no acute distress SKIN: Warm and dry. HEAD: Atraumatic. Normocephalic. EYES: Pupils equal and round. No scleral icterus. No injection or drainage. ENT: No nasal bleeding or discharge. Mucous membranes pink and moist. NECK: Trachea midline. No JVD. CARDIOVASCULAR: Regular rate and rhythm. RESPIRATORY: No accessory muscle use. Clear to auscultation. Breath sounds equal bilaterally. GASTROINTESTINAL: Abdomen soft, non-tender, nondistended. Hepatic and splenic margins not palpable. MUSCULOSKELETAL: Extremities without clubbing, cyanosis, or edema. No obvious deformities. NEUROLOGICAL: Awake and alert x 3. No obvious cranial nerve deficits. Motor grossly within normal limits. Five out of 5 muscle strength in the arms and legs. Normal speech. PSYCHIATRIC: flat mood and affect; insight and judgment poor Assessment and Plan - Assessment (1) Tobacco dependency Code(s): F17.200 - Nicotine dependence, unspecified, uncomplicated Status: Acute (2) Overdose Code(s): T50.901A - Poisoning by unspecified drugs, medicaments and biological substances, accidental (unintentional), initial encounter Status: Acute (3) Suicide attempt Code(s): T14.91XA - Suicide attempt, initial encounter Status: Acute (4) Lactic acidosis Code(s): E87.2 - Acidosis Status: Acute (5) Major depressive disorder, recurrent severe without psychotic features Code(s): F33.2 - Major depressive disorder, recurrent severe without psychotic features Status: Acute (6) Alcohol abuse Code(s): F10.10 - Alcohol abuse, uncomplicated Status: Acute (7) UTI (urinary tract infection) Code(s): N39.0 - Urinary tract infection, site not specified Status: Acute - Plan UTI (urinary tract infection) -UA sent : -S/P IVF in the ED, Encourage increase fluid intake -no dysuria, no polyuria -continue Levaquin -monitor signs and symptoms Lactic acidosis Acidosis, Acute, likely due to UTI -monitor signs and symptoms, -monitor lactic acid, improved 0.6 on 07/04 Overdose with toxic encephalopathy intentional overdose CT Head w/ no acute findings, images reviewed. -UDS positive for amphetamines and cannabinoids; EtOH level 126 -Mental status currently improved -monitor mental status Suicide attempt/Lau Act Major depressive disorder, recurrent severe without psychotic features -continue current medications -Management by Psychiatric team Tobacco dependency/Mild COPD Alcohol abuse Nicotine dependence, unspecified, uncomplicated, Acute -counseling given on cessation -start on Nicotine patch -restart on thiamine/folate/MVI -CIWA protocol -monitor for signs of withdrawal -continue DUOnebs treatment prn Hypokalemia Potassium 3.4 -Replaced with KCl -monitor BMP, replace as needed DVT prophylaxis: pt ambulatory Code Status: full code Discussed Condition With: patient and nurse
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
--- NOTE | 2018-07-06 15:39 | P.DSPSY ---
Psychiatry Discharge Summary Inpatient Psychiatric care?: Yes Advance Directives: No Mental Health Advance Directive: No Health Care Proxy: No - Admission Admission Date: July 05, 2018 11:08 - Admission Diagnosis (1) Adjustment disorder with mixed disturbance of emotions and conduct Code(s): F43.25 - Adjustment disorder with mixed disturbance of emotions and conduct (2) Amphetamine abuse Code(s): F15.10 - Other stimulant abuse, uncomplicated (3) Alcohol abuse Code(s): F10.10 - Alcohol abuse, uncomplicated Brief History: Please see dictation done on the progress note dated this day 07/06 Tobacco Use In Past 30 Days: Yes How Often Do You Have a Drink Containing Alcohol: 2 to 3 times a week Hospital Course: Please see progress note dictated on this date 07/06. Patient no longer meets Lau criteria will be lifting Lau act patient to be discharged to herself. She may continue her own medication and we will follow through with mental health in [facility] if she leaves as she is planning to her follow-up [facility]. Also refer to AA and NA. And absolute sobriety - Discharge Discharge Date: 07/06/18 - Discharge Diagnosis (1) Major depressive disorder, recurrent severe without psychotic features Code(s): F33.2 - Major depressive disorder, recurrent severe without psychotic features Status: Acute (2) Amphetamine abuse Code(s): F15.10 - Other stimulant abuse, uncomplicated Status: Acute (3) Alcohol abuse Code(s): F10.10 - Alcohol abuse, uncomplicated Status: Acute Discharge Disposition: Home - Discharge Instructions Discharge Diet: Regular Diet Activities You Can Perform: Regular- No Restrictions - Discharge Time > 30 minutes Mental Status Examination Appearance: Disheveled Consciousness: Alert Orientation: x4 Motor Activity: Normal gait Speech: Rapid Language: Adequate Fund of Knowledge: Adequate Attention and Concentration: Adequate Memory: Unremarkable Mood: Other (Euthymic to mildly dysphoric) Affect: Other (Good range and intensity) Thought Process & Associations: Intact Thought Content: Appropriate Hallucination Type: None Delusion Type: None Suicidal Ideation: No Suicidal Plan: No Suicidal Intention: No Homicidal Ideation: No Homicidal Plan: No Homicidal Intention: No Insight: Poor Judgment: Poor Discharge/Advance Care Plan - Results Vital Signs: Last Vital Signs Temp 98.3 F 07/06/18 05:21 Pulse 61 07/06/18 05:21 Resp 17 07/06/18 05:21 BP 116/66 07/06/18 05:21 Pulse Ox 98 07/06/18 05:21 Lab Results: Blood alcohol level 126 urine toxicology positive for amphetamines and marijuana Summary of Procedures: None done Pending Results: None - Medications Number of antipsychotic medications at discharge: 0 - Discharge Care Plan Goals to Promote Your Health: * To prevent worsening of your condition and complications * To maintain your health at the optimal level Directions to Meet Your Goals: Take your medications as prescribed Follow your dietary instruction Follow activity as directed Keep your appointments as scheduled Take your immunizations and boosters as scheduled If your symptoms worsen call your PCP, if no PCP go to Urgent Care Center or Emergency Room For 24/03 questions related to your inpatient stay or results of tests pending at discharge, please contact Dr. Gerry Marks MD at Smoking is Dangerous to Your Health. Avoid second hand smoking
--- NOTE | 2018-07-08 09:33 | P.HPPSY ---
Provisional Diagnosis Admission Date: July 05, 2018 11:08 [place] I.: Adjustment disorder with mixed disturbance of emotion and conduct, amphetamine abuse, alcohol abuse Competence Certification of Person's Competence To Provide Express and Informed Consent I have personally examined Enma Paula, a [facility] on, July 08, 2018 0931. Express and informed consent means consent voluntarily given in writing, by a competent person, after sufficient explanation and disclosure of the subject matter involved to enable the person to make a knowing and willful decision without any element of force, fraud, deceit, duress, or other form of constraint or coercion. This person is 18 years of age or older, is not now known to be incompetent to consent to treatment with a guardian advocate, and does not have a health care surrogate or proxy currently making medical treatment decisions. I have found this person to be one of the following: [xxx] Competent to provide express and informed consent, as defined above, for voluntary admission to this facility and is competent to provide express and informed consent for treatment. He/she has the consistent capacity to make well reasoned, willful, and knowing decisions concerning his or her medical or mental health treatment. The person fully and consistently understands the purpose of the admission for examination/placement and is fully capable of personally exercising all rights assured [place] Incompetent to provide express and informed consent to voluntary admission, and this is incompetent to provide express and informed consent to treatment. The person must be transferred to involuntary status and a petition for a guardian advocate filed with the Circuit Court. [] Refusing to provide express and informed consent to voluntary admission but is competent to provide express and informed consent for treatment. The person must be discharged or transferred to involuntary status. Form shall be completed within 24 hours of a person's arrival at the receiving facility and filed in the clinical record of each person: 1. Admitted on a voluntary basis 2. Permitted to provide express and informed consent to his/her own treatment 3. Allowed to transfer from involuntary to voluntary status 4. Prior to permitting a person to consent to his or her own treatment after having been previously found incompetent to consent to treatment. History of Present Illness Capacity: Has capacity History of Present Illness: Please see dictation done on the progress note dated this day 07/06. Patient was initially admitted to the medical service on 07/04 with was seen in consultation by Dr. Mccall 07/05/18. Recommended continued care and observation at that time urine toxicology positive for amphetamines, marijuana, blood alcohol level of 126. Patient was seen by me then on 07/06. [place] at the time patient no longer met Lau act criteria or criteria for inpatient psychiatric hospitalization. There is a detailed progress note written at that time under this hospital visit please see that dictation for detailed notes related to the H&P. However I did not feel that she did not make criteria thus I will lift the Lau act allow her to be discharged to herself - Inpatient Certification I certify that the inpatient services were ordered in accordance with Medicare regulations governing the order. This includes certification that hospital inpatient services are reasonable and necessary and in the case of services not specified as inpatient-only under 42 CFR 419.22(n), that they are appropriately provided as inpatient services in accordance to with the 2-midnight benchmark under 43 CFR 412.3(e) I certify that inpatient psychiatric hospital services are medically necessary. Evaluation and treatment and/or diagnostic testing are expected to improve the patient's condition. The patient needs on a daily basis, active treatment furnished directly by or requiring the supervision of inpatient psychiatric facility personnel. Estimated Total Length of Stay (Days): 5 Plans for Post Hospital Care: Home Review of Systems All other systems reviewed negative except as stated in HPI [facility] - History History Provided By: Patient - Medical History Medical History: Medical History (Last Reviewed 07/08/18 @ 09:35 by Gerry Marks MD) Medical history unknown Surgical history unknown Tobacco dependence - Surgical History Surgical History: Surgical History (Last Reviewed 07/08/18 @ 09:35 by Gerry Marks MD) S/P gastric surgery Status post gastric banding - Social History I have reviewed the patient's Social History: Yes - Tobacco History Second Hand Smoke Exposure: Yes Tobacco Use In Past 30 Days: Yes Smoking Status: Current every day smoker Tobacco Type: Cigarettes, E-Cigarettes - Alcohol History How Often Do You Have a Drink Containing Alcohol: 2 to 3 times a week - Substance Use History Substance History: No History of Abuse - Immunization History Hx Influenza Vaccine This Season: No Quality Measures - Psychiatric History Psychological trauma history: Patient denied to me Violence risk to others in the last 6 months: Low Violence risk to self in the last 6 months: He denies suicidality to me - Substance Abuse History Drug or alcohol use in the past 12 months: Patient active amphetamine abuse though she states she has been prescribed a psychostimulant, marijuana abuse, and alcohol abuse - Patient Strengths Patient's strengths (minimum of 2): Patient verbal able access healthcare Medications and Allergies Allergies Allergy/AdvReac Type Severity Reaction Status Date / Time amoxicillin Allergy Unknown Anaphylaxis Verified 07/04/18 01:23 gentamicin Allergy Hives Verified 07/05/18 14:39 Home Medications Medication Instructions Recorded Confirmed Type Unable to Obtain Home Meds 07/04/18 07/04/18 History Exam Narrative: Patient sitting quietly in her room, she is in no acute distress, patient no respiratory distress, no complaints of chest pain or abdominal pain. Patient moving all 4 extremities without difficulty Mental Status Examination Appearance: Disheveled Consciousness: Alert Orientation: x4 Motor Activity: Normal gait Speech: Rapid Language: Adequate Fund of Knowledge: Adequate Attention and Concentration: Adequate Memory: Unremarkable Mood: Other (Euthymic to mildly dysphoric) Affect: Other (Good range and intensity) Thought Process & Associations: Intact Thought Content: Appropriate Hallucination Type: None Delusion Type: None Suicidal Ideation: No Suicidal Plan: No Suicidal Intention: No Homicidal Ideation: No Homicidal Plan: No Homicidal Intention: No Insight: Poor Judgment: Poor Assessment and Plan - Assessment (1) Amphetamine abuse Code(s): F15.10 - Other stimulant abuse, uncomplicated Status: Acute (2) Alcohol abuse Code(s): F10.10 - Alcohol abuse, uncomplicated Status: Acute (3) Adjustment disorder with mixed disturbance of emotions and conduct Code(s): F43.25 - Adjustment disorder with mixed disturbance of emotions and conduct Status: Acute - Plan Plan: At this time patient longer meets criteria for inpatient psychiatric hospitalization also lift Lau act patient to be discharged to herself with follow up with services in the community. Patient denying suicidality homicidality voice or visions able contract to do no harm strong recommendation for absolute sobriety Justification for Continued Inpatient Stay: Patient to be discharged today Discharge Planning: Patient to be discharged to herself today Request Healthcare Surrogate/Guardian Advocate?: No
== END 2018-07-06 20:55 | disposition home or self-care (01) ==
LOC: H260 11:08
PROVIDERS: ADMIT Psychiatry & Neurology Psychiatry; ATTEND Psychiatry & Neurology Psychiatry